=== PATIENT | male | born 1965 | race Caucasian/White ===

== ENCOUNTER → 2016-06-25 | Outpatient (CLI) | payer OTHER, BC ==
[~2016-06-25] MED LIST: MOXI400T2 PO; MULT-506 PO; OXYC1TAB3 PO; PRD10 PO; WARF2TAB PO
== END | disposition home or self-care (01) ==
LOC: C.RDSM 12:09
PROVIDERS: ATTEND Physical Medicine & Rehabilitation Sports Medicine
DX: Z47.1 Aftercare following joint replacement surgery (principal); M17.0 Bilateral primary osteoarthritis of knee; Z96.652 Presence of left artificial knee joint

== ENCOUNTER → 2016-07-06 | Outpatient (CLI) | payer OTHER, BC ==
--- NOTE | 2016-07-06 13:40 | DIAGNOSTIC IMAGING REPORT ---
LUMBAR SPINE 2 OR 3 VIEWS CLINICAL HISTORY: LOWER BACK PAIN pain COMPARISON STUDY: None FINDINGS: Mild scoliosis. Vertebral body stature is unremarkable. Intervertebral discs are well-preserved. Minimal degenerative disc change L5-S1. IMPRESSION: Minimal degenerative disc change L5-S1. Mild scoliosis. Electronically signed by: Dominic Neal M.D. 07/06/2016 1:39 PM Dictated Date/Time: 07/06/2016 1:38 PM
== END | disposition home or self-care (01) ==
LOC: C.RDSM 15:43
PROVIDERS: ATTEND Orthopaedic Surgery
DX: M51.37 Other intervertebral disc degeneration, lumbosacral region (principal); M41.9 Scoliosis, unspecified

== ENCOUNTER → 2016-12-24 | Outpatient (CLI) | payer OTHER, BC | END | disposition home or self-care (01) | LOC: C.RDSM 07:55 | PROVIDERS: ATTEND Physical Medicine & Rehabilitation Sports Medicine | DX: M25.562 Pain in left knee (principal); Z96.652 Presence of left artificial knee joint ==

== ENCOUNTER 2017-01-09 16:01 | Emergency (ER) | payer OTHER, BC ==
[~2017-01-09] VITALS: Ht 190.5 cm; Wt 120.7 kg
[~2017-01-09 16:01] MED LIST changes: -MOXI400T2 PO; -OXYC1TAB3 PO
[2017-01-09 16:07] VITALS: TEMP 36.7; Ht 190.5 cm; Wt 120.7 kg
[2017-01-09] MEDS ORDERED: KETOROLAC TROMETHAMINE 30 MG/ML VIAL IV STA (16:23)
[2017-01-09] MEDS ORDERED: HYDROmorphone INJ 0.5 MG/0.5 ML SYR IV STA (16:25)
[2017-01-09] MEDS ORDERED: SODIUM CHLORIDE 0.9% 1000ML 1,000 ML IV ONE (16:30)
[2017-01-09] MEDS ORDERED: MOXI400T2 PO (16:50)
[2017-01-09 16:54] VITALS: O2SAT 96
[2017-01-09 17:26] LABS: BASO % 0.1 %; BASO ABS # 0.01 K/uL (0-0.2); COMPLETE YES; HEMATOCRIT 44.4 % (42-52); IG% 0.3 %; LYMPH % 7.4 %; LYMPH ABS # 1.27 K/uL (1.2-3.4); MEAN CELL VOLUME 90.8 fL (80-100); MEAN CORPUSCULAR HEMOGLOBIN 32.3 pg (25-34); MEAN CORPUSCULAR HGB CONC 35.6 g/dl (32-36); MEAN PLATELET VOLUME 10.1 fL (7.4-10.4); MONO % 7.2 %; PLATELET COUNT 258 K/uL (130-400); RED BLOOD COUNT 4.89 M/uL (4.7-6.1); WHITE BLOOD COUNT 17.16 K/uL (4.8-10.8)
[2017-01-09 18:00] LABS: ALT/SGPT 37 U/L (12-78); BLOOD UREA NITROGEN 19 mg/dl (7-18); CALCIUM 9.2 mg/dl (8.5-10.1); CARBON DIOXIDE 25 mmol/L (21-32); CHLORIDE 105 mmol/L (98-107); CREATININE 0.99 mg/dl (0.60-1.40); GLUCOSE 102 mg/dl (70-99); SODIUM 138 mmol/L (136-145)
[2017-01-09 18:03] LABS: ALB/GLOB RATIO 1.2 (0.9-2); ALKALINE PHOSPHATASE 74 U/L (45-117); THYROID STIMULATING HORMONE 0.566 uIu/ml (0.300-4.500)
[2017-01-09 18:54] LABS: PARTIAL THROMBOPLASTIN RATIO 1.2
[2017-01-09 19:11] LABS: POTASSIUM 3.7 mmol/L (3.5-5.1)
[2017-01-09 19:16] LABS: MAGNESIUM 2.1 mg/dl (1.8-2.4)
[2017-01-09 19:48] LABS: LYME DISEASE AB IGG NEG (NEG); LYME DISEASE AB IGM NEG (NEG)
[2017-01-09] MEDS ORDERED: OXYCODONE IR HOME PACK PO ONE (20:15)
[2017-01-09] MEDS ORDERED: OXYC1TAB3 PO (20:22)
[2017-01-09 20:30] VITALS: BP 135/91; PULSE 76; O2SAT 95
--- NOTE | 2017-01-10 15:22 | EMERGENCY ROOM VISIT NOTE ---
History First contact with patient: 16:14 Chief Complaint: CHEST PAIN Stated Complaint: CHEST PAINS, DOWN LEFT ARM History of Present Illness The patient is a 51 year old male who presents to the Emergency Room with complaints of left-sided chest pain that began earlier today. 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 While using this he began to develop left-sided chest pain. He states that he switched later hammer. He was doing, however his pain persisted. He was working in the [place] area, and was seen at that facility earlier today, roughly 5 hours ago. Evidently he had blood work, chest x-ray, EKG, and CT scan of his chest at that time. Those findings were evidently normal, but the patient was somewhat dissatisfied with his treatment at that facility. He essentially presents here for another opinion. He rates his current discomfort a 5/10. It comes in waves that he rates a 10/10. His discomfort does not appear to worsen with activity. He does have some discomfort with range of motion. Review of Systems More than 10 systems were reviewed and otherwise negative with the exception of history of present illness. Past Medical/Surgical History History of multiple knee surgeries Family History No pertinent family history Social History Smoking Status: Unknown if Ever Smoked Housing Status: lives with family Current/Historical Medications Scheduled Moxifloxacin Hcl (Avelox), 400 MG PO DAILY Oxycodone Immediate Rel Tab (Roxicodone Ir), 1-2 TAB PO Q6 Prednisone (Prednisone), 10 MG PO UD Physical Exam Vital Signs Date Time Temp Pulse Resp B/P (MAP) Pulse Ox O2 Delivery O2 Flow Rate FiO2 01/09/17 20:30 76 18 135/91 95 Room Air 01/09/17 19:43 72 16 140/84 94 Room Air 01/09/17 18:55 73 16 126/85 96 01/09/17 16:54 96 Room Air 01/09/17 16:54 96 Room Air 01/09/17 16:07 36.7 93 18 144/93 94 Room Air Physical Exam VITALS: Vitals are noted on the nurse's note and reviewed by myself. Vital signs stable. GENERAL: Well-developed, well-nourished, white male, who is in no acute distress and resting comfortably. Patient is cooperative with the examination. NECK: Supple without nuchal rigidity. No lymphadenopathy. No thyromegaly. Cervical spine is nontender. HEART: Regular rate and rhythm without murmurs gallops or rubs. LUNGS: Clear to auscultation bilaterally without wheezes, rales or rhonchi. No retractions or accessory muscle use. CHEST WALL: Left side chest wall is nontender on palpation. No distinct sternal tenderness, clavicular tenderness, or left shoulder tenderness. Range of motion intact and full. ABDOMEN: Positive normal bowel sounds x 4. Soft, nontender, without masses or organomegaly. No guarding or rebound tenderness. MUSCULOSKELETAL: No muscle atrophy, erythema, or edema noted. No calf tenderness. NEURO: Patient was alert and oriented to person place and time. CN II through XII grossly intact Medical Decision & Procedures Laboratory Results 01/09/17 17:00 Red Blood Count 4.89, Mean Corpuscular Volume 90.8, Mean Corpuscular Hemoglobin 32.3, Mean Corpuscular Hemoglobin Concent 35.6, Mean Platelet Volume 10.1, Neutrophils (%) (Auto) 85.0, Lymphocytes (%) (Auto) 7.4, Monocytes (%) (Auto) 7.2, Eosinophils (%) (Auto) 0.0, Basophils (%) (Auto) 0.1, Neutrophils # (Auto) 14.60, Lymphocytes # (Auto) 1.27, Monocytes # (Auto) 1.23, Eosinophils # (Auto) 0.00, Basophils # (Auto) 0.01 01/09/17 17:00 01/09/17 18:23 Test 01/09/17 17:00 01/09/17 18:23 White Blood Count 17.16 K/uL (4.8-10.8) Red Blood Count 4.89 M/uL (4.7-6.1) Hemoglobin 15.8 g/dL (14.0-18.0) Hematocrit 44.4 % (42-52) Mean Corpuscular Volume 90.8 fL (80-100) Mean Corpuscular Hemoglobin 32.3 pg (25-34) Mean Corpuscular Hemoglobin Concent 35.6 g/dl (32-36) Platelet Count 258 K/uL (130-400) Mean Platelet Volume 10.1 fL (7.4-10.4) Neutrophils (%) (Auto) 85.0 % Lymphocytes (%) (Auto) 7.4 % Monocytes (%) (Auto) 7.2 % Eosinophils (%) (Auto) 0.0 % Basophils (%) (Auto) 0.1 % Neutrophils # (Auto) 14.60 K/uL (1.4-6.5) Lymphocytes # (Auto) 1.27 K/uL (1.2-3.4) Monocytes # (Auto) 1.23 K/uL (0.11-0.59) Eosinophils # (Auto) 0.00 K/uL (0-0.5) Basophils # (Auto) 0.01 K/uL (0-0.2) RDW Standard Deviation 39.2 fL (36.4-46.3) RDW Coefficient of Variation 11.9 % (11.5-14.5) Immature Granulocyte % (Auto) 0.3 % Immature Granulocyte # (Auto) 0.05 K/uL (0.00-0.02) Anion Gap 9.0 mmol/L (3-11) Est Creatinine Clear Calc Drug Dose 126.4 ml/min Estimated GFR () 103.2 Estimated GFR (Non- 89.1 BUN/Creatinine Ratio 19.0 (10-20) Calcium Level 9.2 mg/dl (8.5-10.1) Total Bilirubin 0.6 mg/dl (0.2-1) Alanine Aminotransferase (ALT/SGPT) 37 U/L (12-78) Alkaline Phosphatase 74 U/L (45-117) Troponin I < 0.015 ng/ml (0-0.045) Total Protein 7.6 gm/dl (6.4-8.2) Albumin 4.1 gm/dl (3.4-5.0) Globulin 3.5 gm/dl (2.5-4.0) Albumin/Globulin Ratio 1.2 (0.9-2) Lipase 83 U/L (73-393) Thyroid Stimulating Hormone (TSH) 0.566 uIu/ml (0.300-4.500) Activated Partial Thromboplast Time 30.8 SECONDS (21.0-31.0) Partial Thromboplastin Ratio 1.2 Magnesium Level 2.1 mg/dl (1.8-2.4) Aspartate Amino Transf (AST/SGOT) 14 U/L (15-37) Lyme Disease IgG Antibody NEG (NEG) Lyme Disease IgM Antibody NEG (NEG) Medications Administered Medications (Trade) Dose Ordered Sig/Anthony Route Start Time Stop Time Status Last Admin Dose Admin Sodium Chloride 1,000 ml @ 999 mls/hr Q1H1M ONCE IV 01/09/17 16:30 01/09/17 17:30 DC 01/09/17 17:08 999 MLS/HR Ketorolac Tromethamine (Toradol Inj) 30 mg NOW STAT IV 01/09/17 16:23 01/09/17 16:26 DC 01/09/17 17:08 30 MG Hydromorphone HCl (Dilaudid Inj) 0.5 mg NOW STAT IV 01/09/17 16:25 01/09/17 16:27 DC 01/09/17 17:09 0.5 MG Oxycodone HCl (Roxicodone Immediate Rel 5MG Home Pack) 1 homepack UD ONCE PO 01/09/17 20:15 01/09/17 20:16 DC 01/09/17 20:15 1 HOMEPACK ECG Change: Normal sinus rhythm @97 bpm Normal ECG When compared with ECG of 21-OCT-2014 11:56, Vent. rate has increased BY 40 BPM Questionable change in QRS axis Confirmed by TOMMY VARGAS ([id number]) on 01/10/2017 9:20:18 AM ED Course Physical exam and history were performed. Nursing notes, EMR, and Medication List were personally reviewed. 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 He was evaluated roughly 6 hours ago at [facility] in the emergency department. These records were available for my review, and the patient did have a normal x-ray, normal CT angiogram, and negative troponin. He did have a slightly elevated white blood cell count at that visit, and is evidently taking Avelox and prednisone for a sinus infection. EKG was performed here and is as above without distinct ST elevation or ischemia. IV access was established and labs were obtained. The patient's blood work returned as above and was reviewed. He continues to have an elevated white blood cell count, however I do suspect this is from his steroid use. He is not anemic or with significant electrolyte imbalance. Troponin is negative. His remaining labs are fairly nondiagnostic. The patient was given IV fluids, IV Toradol, and IV Dilaudid here in the department , which essentially completely resolved his symptoms. I did discuss the case with my attending physician, Dr. Shah, and overall we do feel the patient is stable for discharge home. He has essentially had a 6 hour troponin here in the department that was negative. His EKG continues without distinct signs of ischemia. He had a CT scan with contrast a few hours ago, and I do not feel that repeating the scan is appropriate at this time. I do have concern that the patient's discomfort may be musculoskeletal in nature. He is on a quinolone and prednisone, which may be saturating to his symptoms. The patient will need to follow with his primary care physician in the next few days for repeat evaluation. I did have a length discussion with him and his about returning to the ER with any new, worsening, or concerning symptoms. I did answer all their questions, and they were pleased with care today. I will give him a short course of oxycodone and an arm sling as I believe the stools will help with his discomfort. The patient's discomfort was rated a 0/10 at the time of departure. The chart was completed utilizing [employer] Speech Voice Recognition Software. Grammatical errors, random word insertions, pronoun errors, and incomplete sentences are an occasional consequence of this system due to software limitations, ambient noise, and hardware issues. Any formal questions or concerns about the content, text, or information contained within the body of this dictation should be directly addressed to the provider for clarification. . Medical Decision Differential diagnosis includes, but is not limited to: Myocardial infarction, dysrhythmia, pericarditis, pneumothorax, aortic aneurysm/dissection, DVT/PE, anxiety, GERD, PUD, electrolyte imbalance, thyroid disorder, pneumonia, bronchitis, pancreatitis, and others Blood Pressure Screening Patient's blood pressure: Elevated blood pressure Blood pressure disposition: Did not require urgent referral Impression Primary Impression: Left-sided chest wall pain Departure Information Dispostion Home / Self-Care Condition GOOD Prescriptions Oxycodone Immediate Rel Tab (ROXICODONE IR) 5 Mg Tab 1-2 TAB PO Q6, #15 TAB Prov: Marcus Lindsey PA-C 01/09/17 Forms Call Back Authorization, HOME CARE DOCUMENTATION FORM, IMPORTANT VISIT INFORMATION Patient Instructions My [facility] Additional Instructions You were seen and evaluated today on an emergency basis only. This is not a substitute for, or an effort to provide, complete comprehensive medical care. It is not possible to recognize and treat all injuries or illnesses in a single emergency department visit. For this reason it is recommended that you followup with your primary care physician on Saturday for recheck of your condition. Oxycodone (OxyIR) 5mg: Take ONE or TWO pills every SIX hours for breakthrough pain. Avoid alcohol, operating machinery or dangerous equipment, working on ladders or roofs, DRIVING, or situations where being under the influence may be dangerous. It is recommended to use an [id number] stool softener such as Colace, 100mg twice daily while taking this medication to avoid constipation. Wear your sling for comfort. You are welcome to return to the emergency department anytime with new, worsening, or concerning symptoms.
== END 2017-01-09 20:38 | disposition home or self-care (01) ==
LOC: C.EDB 16:02 → C.EDA 20:38
DX: R07.89 Other chest pain (principal)

== ENCOUNTER 2017-03-30 19:47 | Emergency (ER) | payer OTHER ==
[~2017-03-30] VITALS: Ht 193 cm; Wt 122.7 kg
[~2017-03-30 19:47] MED LIST changes: +MOXI400T2 PO; -MULT-506 PO; +OXYC1TAB3 PO; -WARF2TAB PO
[2017-03-30 19:51] VITALS: Ht 193 cm; Wt 122.7 kg
[2017-03-30] MEDS ORDERED: ACETAMINOPHEN 325 MG TAB PO STA (20:06)
[2017-03-30] MEDS ORDERED: KETOROLAC TROMETHAMINE 30 MG/ML VIAL IV STA (20:06)
--- NOTE | 2017-03-30 20:13 | EMERGENCY ROOM VISIT NOTE ---
History First contact with patient: 19:57 Chief Complaint: FLU LIKE SX Stated Complaint: FEVER,COUGH,FLU History of Present Illness The patient is a 51 year old male who presents to the Emergency Room with complaints of flulike symptoms that started yesterday. The patient has had a productive cough with green sputum and a fever as high as 102F. He has been taking acetaminophen with minimal relief. He denies any nausea or vomiting. He does have some sinus pressure and ear pain. He also complains of a scratchy throat. He did not get his flu shot this year. He denies any known sick contacts. Review of Systems 10 system review performed and negative unless noted in HPI or below Past Medical/Surgical History Otherwise healthy Social History Smoking Status: Never Smoker Housing Status: lives with family Occupation Status: employed Current/Historical Medications Scheduled Amoxicillin & Pot Clavulanate (Augmentin 875-125 mg), 1 TAB PO BID Meloxicam (Mobic), 7.5 MG PO NEEDED Physical Exam Vital Signs Date Time Temp Pulse Resp B/P (MAP) Pulse Ox O2 Delivery O2 Flow Rate FiO2 03/30/17 21:41 37.2 98 18 134/85 95 Room Air 03/30/17 20:52 104 03/30/17 19:51 39.0 120 18 125/83 93 Room Air Physical Exam GENERAL: 51-year-old male, mildly acutely ill in appearance,, SKIN: The skin was without rashes, erythema, edema, or bruising. HEAD: Normocephalic atraumatic. EARS: External auditory canals clear, right tympanic membrane is pearly sauceda without effusion. Left tympanic membrane is moderately erythematous without effusion. EYES: Conjunctivae without injection, sclerae without icterus. Extraocular movements intact. NOSE: Patent, turbinates without inflammation or discharge. No sinus tenderness. MOUTH: Mucous membranes moist. Tonsils are not enlarged. Pharynx without erythema or exudate. Uvula midline. Airway patent. Tongue does not deviate. NECK: Supple without nuchal rigidity. No lymphadenopathy. Cervical spine is nontender. No JVD. HEART: Tachycardic, regular rhythm without murmurs gallops or rubs. LUNGS: Clear to auscultation bilaterally without wheezes, rales or rhonchi. No accessory muscle use. ABDOMEN: Positive bowel sounds x 4.Soft, nontender, without organomegaly. MUSCULOSKELETAL: No muscle atrophy, erythema, or edema noted. Strength 5/5 throughout. NEURO: Patient was alert and oriented to person place and time. Normal sensation to touch. No focal neurological deficits. Medical Decision & Procedures ER Provider Diagnostic Interpretation: CXR IMPRESSION: 1. Mildly low lung volumes with hypoventilatory changes. No focal infiltrate to suggest pneumonia. Electronically signed by: Ivan Guerrero M.D. 03/30/2017 9:27 PM Dictated Date/Time: 03/30/2017 9:26 PM The status of this report is Signed. Draft = Not yet reviewed or approved by Radiologist. Laboratory Results 03/30/17 20:30 Red Blood Count 4.73, Mean Corpuscular Volume 91.5, Mean Corpuscular Hemoglobin 32.3, Mean Corpuscular Hemoglobin Concent 35.3, Mean Platelet Volume 10.0, Neutrophils (%) (Auto) 76.8, Lymphocytes (%) (Auto) 9.6, Monocytes (%) (Auto) 12.6, Eosinophils (%) (Auto) 0.5, Basophils (%) (Auto) 0.4, Neutrophils # (Auto ) 5.65, Lymphocytes # (Auto) 0.71, Monocytes # (Auto) 0.93, Eosinophils # (Auto ) 0.04, Basophils # (Auto) 0.03 03/30/17 20:30 Test 03/30/17 20:30 03/30/17 20:31 White Blood Count 7.37 K/uL (4.8-10.8) Red Blood Count 4.73 M/uL (4.7-6.1) Hemoglobin 15.3 g/dL (14.0-18.0) Hematocrit 43.3 % (42-52) Mean Corpuscular Volume 91.5 fL (80-100) Mean Corpuscular Hemoglobin 32.3 pg (25-34) Mean Corpuscular Hemoglobin Concent 35.3 g/dl (32-36) Platelet Count 167 K/uL (130-400) Mean Platelet Volume 10.0 fL (7.4-10.4) Neutrophils (%) (Auto) 76.8 % Lymphocytes (%) (Auto) 9.6 % Monocytes (%) (Auto) 12.6 % Eosinophils (%) (Auto) 0.5 % Basophils (%) (Auto) 0.4 % Neutrophils # (Auto) 5.65 K/uL (1.4-6.5) Lymphocytes # (Auto) 0.71 K/uL (1.2-3.4) Monocytes # (Auto) 0.93 K/uL (0.11-0.59) Eosinophils # (Auto) 0.04 K/uL (0-0.5) Basophils # (Auto) 0.03 K/uL (0-0.2) RDW Standard Deviation 40.5 fL (36.4-46.3) RDW Coefficient of Variation 12.0 % (11.5-14.5) Immature Granulocyte % (Auto) 0.1 % Immature Granulocyte # (Auto) 0.01 K/uL (0.00-0.02) Anion Gap 7.0 mmol/L (3-11) Est Creatinine Clear Calc Drug Dose 122.9 ml/min Estimated GFR () 97.3 Estimated GFR (Non- 83.9 BUN/Creatinine Ratio 11.1 (10-20) Calcium Level 8.6 mg/dl (8.5-10.1) Total Bilirubin 0.4 mg/dl (0.2-1) Aspartate Amino Transf (AST/SGOT) 25 U/L (15-37) Alanine Aminotransferase (ALT/SGPT) 43 U/L (12-78) Alkaline Phosphatase 59 U/L (45-117) Total Protein 7.0 gm/dl (6.4-8.2) Albumin 3.9 gm/dl (3.4-5.0) Globulin 3.1 gm/dl (2.5-4.0) Albumin/Globulin Ratio 1.3 (0.9-2) Influenza Type A Antigen Neg for Influ A (NEG) Influenza Type B Antigen Neg for Influ B (NEG) Medications Administered Medications (Trade) Dose Ordered Sig/Anthony Route Start Time Stop Time Status Last Admin Dose Admin Ketorolac Tromethamine (Toradol Inj) 30 mg NOW STAT IV 03/30/17 20:06 03/30/17 20:09 DC 03/30/17 20:33 30 MG Acetaminophen (Tylenol Tab) 650 mg NOW STAT PO 03/30/17 20:06 03/30/17 20:09 DC 03/30/17 20:34 650 MG Sodium Chloride 1,000 ml @ 999 mls/hr Q1H1M ONCE IV 03/30/17 20:15 03/30/17 21:15 DC 03/30/17 20:32 999 MLS/HR ED Course Patient was seen and examined Vital signs including blood pressure were reviewed medications list was verified with patient Labs were obtained, and a saline lock was established The patient was medicated with Toradol and Tylenol. He was hydrated with 1 L of normal saline. Imaging was performed and reviewed Upon reassessment, the patient was slightly more comfortable. We discussed his workup at length. He voiced understanding. The patient's vital signs were reassessed. I reviewed discharge instructions the patient. They voiced understanding and had no further questions. Medical Decision Differential diagnosis: Influenza, pneumonia, otitis media, strep pharyngitis, viral pharyngitis, other viral syndrome This patient is a 51-year-old male presents to the emergency department with flulike symptoms. On exam, he was mildly acutely ill and febrile. His left TM was moderately erythematous. He did not have any signs of nuchal rigidity to suggest meningitis. His workup reveals no leukocytosis. Chest x-ray is negative for pneumonia. Influenza swabs were also negative. This is likely a viral illness. I offered the patient a CT scan to assess him for sinusitis, which he declined. He was comfortable being discharged home. The patient was provided a prescription for Augmentin, which should be adequate coverage for an otitis media or sinusitis. If he is still spiking fevers tomorrow, has increased ear pressure or sinus pressure, he will start and finish the entire course. I advised him to have very close follow-up with his primary care physician. He agrees to return to the emergency department with any worsening symptoms; especially, uncontrolled fever, headache or neck pain This chart was completed in part utilizing [employer] Voice Recognition software. Attempts were made to minimize the grammatical errors, random word insertions, pronoun errors and incomplete sentences. Any formal questions or concerns about the content, text or information contained within the body of this dictation should be directly addressed to the provider for clarification. Blood Pressure Screening Patient's blood pressure: Normal blood pressure Blood pressure disposition: Did not require urgent referral Impression Primary Impression: Influenza-like symptoms Departure Information Dispostion Home / Self-Care Condition GOOD Prescriptions Amoxicillin & Pot Clavulanate (Augmentin 875-125 mg) 1 Tab Tab 1 TAB PO BID for 10 Days, #20 TAB Prov: Elizabeth Anne PA-C 03/30/17 Referrals Cherise Vasques (PCP) Patient Instructions My [facility] Additional Instructions You have been evaluated in the emergency department for flulike symptoms. An influenza swab was performed and negative. A chest x-ray did not show any signs of pneumonia. This is likely a viral illness. You have been given a perception for Augmentin. If you are still spiking fevers and having significant ear pain or sinus pressure, please start and finish the entire course. Please take a probiotic or eat yogurt daily with this antibiotic. This can cause loose stools. Please stay well hydrated. I would recommend water and sports drinks. Ibuprofen 800 mg and/or Tylenol 1000 mg every 8 hours for fever and pain. You may also alternate these medications for more effective pain relief: Ibuprofen --4 HRS--> Tylenol --4 HRS--> ibuprofen --4 HRS--> Tylenol .... Please follow-up with your primary care physician as soon as possible for a recheck. Please do not hesitate to return to the emergency department with any new, worsening or concerning symptoms; especially, uncontrolled fever, headache, neck pain or back pain. It was a pleasure participating in your care today Work Instructions Return To Work: 2 days
[2017-03-30] MEDS ORDERED: SODIUM CHLORIDE 0.9% 1000ML 1,000 ML IV ONE (20:15)
[2017-03-30 20:45] LABS: BASO % 0.4 %; BASO ABS # 0.03 K/uL (0-0.2); EOS % 0.5 %; EOS ABS # 0.04 K/uL (0-0.5); HEMATOCRIT 43.3 % (42-52); HEMOGLOBIN 15.3 g/dL (14.0-18.0); IG# 0.01 K/uL (0.00-0.02); LYMPH % 9.6 %; LYMPH ABS # 0.71 K/uL (1.2-3.4); MEAN CELL VOLUME 91.5 fL (80-100); MEAN CORPUSCULAR HEMOGLOBIN 32.3 pg (25-34); MEAN CORPUSCULAR HGB CONC 35.3 g/dl (32-36); MONO % 12.6 %; MONO ABS # 0.93 K/uL (0.11-0.59); NEUT % 76.8 %; NEUT ABS # 5.65 K/uL (1.4-6.5); PLATELET COUNT 167 K/uL (130-400); RED CELL DISTRIBUTION WIDTH SD 40.5 fL (36.4-46.3); WHITE BLOOD COUNT 7.37 K/uL (4.8-10.8)
[2017-03-30 21:12] LABS: ALBUMIN 3.9 gm/dl (3.4-5.0); CALCIUM 8.6 mg/dl (8.5-10.1); CREATININE 1.04 mg/dl (0.60-1.40); POTASSIUM 3.4 mmol/L (3.5-5.1)
[2017-03-30] MEDS ORDERED: MELO7.5T5 PO (21:14)
[2017-03-30 21:21] LABS: INFLUENZA B ANTIGEN Neg for Influ B (NEG)
--- NOTE | 2017-03-30 21:29 | DIAGNOSTIC IMAGING REPORT ---
CHEST 2 VIEWS ROUTINE CLINICAL HISTORY: 51 years-old Male presenting with cough, fever. TECHNIQUE: PA and lateral views of the chest were obtained. COMPARISON: 10/21/2014. FINDINGS: Cardiac silhouette top normal in size. Mildly low lung volumes with hypoventilatory changes. Lungs and pleural spaces clear. Osseous structures normal. Cholecystectomy clips noted. IMPRESSION: 1. Mildly low lung volumes with hypoventilatory changes. No focal infiltrate to suggest pneumonia. Electronically signed by: Ivan Guerrero M.D. 03/30/2017 9:27 PM Dictated Date/Time: 03/30/2017 9:26 PM
[2017-03-30 21:41] VITALS: BP 134/85; PULSE 98; TEMP 37.2; O2SAT 95
[2017-03-30] MEDS ORDERED: AMOX875T PO (22:02)
== END 2017-03-30 22:08 | disposition home or self-care (01) ==
LOC: C.EDB 19:49
DX: R50.9 Fever, unspecified (principal); R05 Cough

== ENCOUNTER → 2017-06-25 | Outpatient (CLI) | payer OTHER ==
[~2017-06-25] MED LIST changes: +MELO7.5T5 PO; -MOXI400T2 PO; -OXYC1TAB3 PO; -PRD10 PO
== END | disposition home or self-care (01) ==
LOC: C.RDSM 14:15
PROVIDERS: ATTEND Physical Medicine & Rehabilitation Sports Medicine
DX: M17.0 Bilateral primary osteoarthritis of knee (principal); Z96.652 Presence of left artificial knee joint

== ENCOUNTER 2021-03-21 11:48 | Inpatient (IN) ==
[2021-03-21] MEDS ORDERED: ACETAMINOPHEN 80 MG CHEWABLE TAB PO STA (12:14)
[2021-03-21] MEDS ORDERED: SODIUM CHLORIDE 0.9% 1000ML 500 ML IV ONE (12:14)
[2021-03-21] MEDS ORDERED: methylPREDNISolone 125 MG/2 ML VIAL IV STA (12:15)
--- NOTE | 2021-03-21 12:20 | Emergency Department Note ---
Impression & Plan Acute respiratory failure with hypoxia, Post covid-19 condition, unspecified, Acute hypokalemia, Acute hyponatremia ED Provider Note NAME: Enoc WOODS AGE: 55 SEX: M : 1965 ARRIVES VIA: Walk-In INFORMANT: Patient ED PROVIDER(S): Jack Harry DO CHIEF COMPLAINT: shortness of breath HPI: 55-year-old male who presents ER for shortness of breath. He tested positive for Covid 3 weeks ago. He was seen and evaluated by his PCP over the weekend and referred in for possible TN and was discharged following complete work-up. He admits to cough and congestion and he passed out today with coughing. He denies any recorded fevers. No belly pain, nausea, vomiting, or diarrhea. No dysuria, urgency, or frequency. No other exacerbating or remitting factors. Shortness of breath is worse with any movement. He does not wear oxygen. ROS: See above HPI for pertinent positives & negatives. A total of 10 systems reviewed and were otherwise negative. PAST MEDICAL HISTORY:See Below PAST SURGICAL HISTORY:See Below FAMILY HISTORY:See Below SOCIAL HISTORY:See Below HOME MEDICATIONS:See Below ALLERGIES:See Below VITALS:See Below PHYSICAL EXAMINATION: GENERAL: Sitting up in bed, alert, ill-appearing with a persistent cough, on nasal cannula EYE EXAM: normal conjunctiva. PERRL and EOM's grossly intact. OROPHARYNX: no exudate, no erythema, lips, buccal mucosa, and tongue normal and mucous membranes are moist NECK: supple, no nuchal rigidity, no adenopathy, non-tender LUNGS: Clear to auscultation. Normal chest wall mechanics HEART: no murmurs, S1 normal and S2 normal ABDOMEN: abdomen soft, non-tender, normo-active bowel sounds, no masses, no rebound or guarding. UPPER EXTREMITIES: upper extremities are grossly normal. LOWER EXTREMITIES: No pitting edema. Calves are equal bilateral NEURO EXAM: Normal sensorium, cranial nerves II-XII grossly intact, normal speech, no gross weakness of arms, no gross weakness of legs. MEDICAL DECISION MAKING: Patient is a 55-year-old male who presents the ER hypoxic at 86% on room air. IV was established blood work was obtained. He was slightly tachycardic. He was borderline febrile at 37.9.He was placed on 2 L nasal cannula.IV was established blood work was obtained. Labs show no significant leukocytosis or anemia. D-dimer was elevated at 540. BMP with mild hyponatremia and hypokalemia. Mild transaminitis with an ALT of 118. T bili was not elevated. Troponin was negative. Lipase was clean. Covid was negative. CT angio of the chest shows no PEs but bilateral infiltrates. Is Covid is negative and is about 3 weeks removed. He was given a dose of antibiotics prophylactically due to the multifocal infiltrates although I favor this likely resolving Covid pneumonia causing hypoxia. Will defer to the hospitalist for further treatment. He was updated bedside. Resting comfortably on nasal cannula. Triage Nursing notes reviewed. Limited review of prior medical records performed Vital Signs: reviewed and remarkable for hypertensive, tachycardic and febrile and hypoxic Differential diagnosis: Differential diagnoses includes but is not limited to pneumonia, bronchitis, COPD/Asthma exacerbation, pneumothorax, pulmonary embolism, congestive heart failure, acute coronary syndrome ER treatment provided: See below Diagnostics interpreted by me: ECG: Sinus tachycardia rate of 119 Left axis No PVCs QTC 450 Cardiac Monitoring: An order was placed for continuous cardiac monitoring. The monitor shows a rate of 110 with sinus rhythm. Laboratory studies: As stated above and show below. Imaging studies: CT angios the chest shows no PEs bilateral infiltrates Consultation(s): Discussed with Dr. Gutierrez for further evaluation Procedures: none Critical Care: I have personally spent 31 minutes of critical care time in the direct management of this patient. This includes bedside care, interpretation of diagnostic studies, and testing, discussion with consultants, patient, and family members, and other required patient management activities. This 31 minutes is in excess of all separately billable procedures. Past Med/Surg History Medical History Osteoarthritis Surgical History H/O knee surgery R/L X 15 TOTAL SURGERIES H/O shoulder surgery LEFT History of cholecystectomy History of colonoscopy History of revision of total replacement of left knee joint History of total knee replacement R/L S/P epidural steroid injection Family History Other No family history of adverse response to anesthesia Social History Smoking Status: Never smoker Second Hand Exposure: No; Hx Alcohol Use: Yes Alcohol type: hard liquor Hx Substance Use: No Preferred Language: Azerbaijani Communication Ability: Effective Residential Care Officer Required: No Beliefs That Will Affect Care: None Current Living Situation: Spouse and Family Feels Safe at Home: Yes Assistive Devices: None Allergies Allergies Allergy/AdvReac Type Severity Reaction Status Date / Time shellfish derived Allergy Severe THROAT Verified 03/21/21 14:48 SWELLING,RASH NAUSEA AND VOMITING milk Allergy Intermediate Gastrointestinal Verified 03/21/21 14:48 Upset iodine Allergy Mild TOPICAL-JOCELYN Verified 03/21/21 14:48 H Home Meds Home Medications Medication Instructions Recorded Confirmed acetaminophen 500 mg tablet 1,000 mg PO Q6H PRN 04/15/18 03/21/21 (Tylenol Extra Strength) ibuprofen 200 mg tablet (Advil) 400 - 600 mg PO Q6H PRN 01/13/19 03/21/21 zinc 50 mg tablet 50 mg PO DAILY 06/30/19 03/21/21 amoxicillin 500 mg capsule 0 mg PO DIRECTED PRN 03/21/21 03/21/21 Previous Rx's Medication Instructions Recorded albuterol sulfate 90 mcg/actuation 2 inh INHALATION Q4H PRN #8.5 g 03/18/21 aerosol inhaler (Proventil HFA) azithromycin 250 mg tablet See Rx Instructions .ROUTE 03/18/21 (Zithromax Z-Mando) .COMPLEX #6 tab prednisone 20 mg tablet 20 mg PO BID 5 Days #10 tab 03/18/21 Results & Data (ED) Vital Signs Vital Signs - 24 hr 03/21/21 11:52 03/21/21 12:02 03/21/21 12:05 Temperature 37.9 C H Temperature Source Temporal Artery Scan Pulse Rate 136 H Pulse Rate [Finger] 115 H Pulse Rhythm Pulse Rhythm [Finger] Regular Pulse Strength [Finger] Normal Respiratory Rate 24 18 Respiratory Effort / Characteristics Non-Labored Non-Labored Respiratory Depth Normal Normal Normal Respiratory Pattern Regular Regular Blood Pressure 110/78 Blood Pressure [Right Arm] 141/87 H Blood Pressure Mean 88 Blood Pressure Mean [Right Arm] 105 Blood Pressure Position Sitting Blood Pressure Position [Right Arm] Sitting Pulse Oximetry 88 L 94 Oxygen Delivery Method Room Air Nasal Cannula Nasal Cannula Oxygen Flow Rate 2 2 Sepsis Recent Fever Within 48 Hours Yes Sepsis New/Unexplained Change in Mental Status No Sepsis Action Taken by Nursing Physician Notified 03/21/21 12:18 03/21/21 13:56 03/21/21 14:35 Temperature 37.9 C H Temperature Source Oral Pulse Rate 113 H Pulse Rate [Finger] 101 H Pulse Rhythm Regular Pulse Rhythm [Finger] Regular Pulse Strength [Finger] Normal Respiratory Rate 20 20 Respiratory Effort / Characteristics Non-Labored Respiratory Depth Normal Respiratory Pattern Blood Pressure Blood Pressure [Right Arm] 112/72 Blood Pressure Mean Blood Pressure Mean [Right Arm] 85 Blood Pressure Position Blood Pressure Position [Right Arm] Sitting Pulse Oximetry 94 94 Oxygen Delivery Method Nasal Cannula Nasal Cannula Oxygen Flow Rate 2 2 Sepsis Recent Fever Within 48 Hours Sepsis New/Unexplained Change in Mental Status Sepsis Action Taken by Nursing Laboratory Data Result diagrams: 03/21/21 12:15 03/21/21 12:15 Lab Results 03/21/21 03/21/21 03/21/21 Range/Units 12:15 12:15 12:15 WBC 10.09 (4.8-10.8) K/uL RBC 4.87 (4.7-6.1) M/uL Hgb 15.4 (14.0-18.0) g/dL Hct 45.7 (42-52) % MCV 93.8 (80-100) fL MCH 31.6 (25-34) pg MCHC 33.7 (32-36) g/dL RDW Std Deviation 40.1 (36.4-46.3) fL RDW Coeff of Jose Manuel 11.8 (11.5-14.5) % Plt Count 307 (130-400) K/uL MPV 9.7 (7.4-10.4) fL Immature Gran % (Auto) 0.2 % Neut % (Auto) 83.6 % Lymph % (Auto) 7.5 % Bertie % (Auto) 8.6 % Eos % (Auto) 0.0 % Baso % (Auto) 0.1 % Neut # (Auto) 8.43 H (1.4-6.5) K/uL Lymph # (Auto) 0.76 L (1.2-3.4) K/uL Bertie # (Auto) 0.87 H (0.11-0.59) K/uL Eos # (Auto) 0.00 (0-0.5) K/uL Baso # (Auto) 0.01 (0-0.2) K/uL Immature Gran # (Auto) 0.02 (0.00-0.02) K/uL D-Dimer 540 H* (0-500) ug/L FEU Sodium 134 L (136-145) mmol/L Potassium 3.2 L (3.5-5.1) mmol/L Chloride 100 (98-107) mmol/L Carbon Dioxide 25 (21-32) mmol/L Anion Gap 9 (3-11) BUN 15 (6-23) mg/dl Creatinine 0.89 (0.6-1.4) mg/dl Est Cr Clr Drug Dosing 131.0 ml/min Est GFR ( Amer) 113.1 ml/min Est GFR (Non-Af Amer) 97.6 ml/min BUN/Creatinine Ratio 16.9 (10-20) Glucose 114 H (70-99(Fasting)) mg/dl Calcium 8.7 (8.5-10.1) mg/dl Total Bilirubin 0.6 (0.2-1.0) mg/dl AST 40 H (13-39) U/L ALT 118 H (7-52) U/L Alkaline Phosphatase 56 (34-104) U/L Troponin I < 0.03 (0-0.04) ng/ml Total Protein 6.8 (6.0-8.3) gm/dl Albumin 4.0 (3.4-5.0) gm/dl Globulin 2.8 (2.5-4.0) gm/dl Albumin/Globulin Ratio 1.4 (0.9-2) Lipase 40 (11-82) U/L SARS-CoV-2, RNA, NAAT (NEGATIVE) 03/21/21 Range/Units 12:15 WBC (4.8-10.8) K/uL RBC (4.7-6.1) M/uL Hgb (14.0-18.0) g/dL Hct (42-52) % MCV (80-100) fL MCH (25-34) pg MCHC (32-36) g/dL RDW Std Deviation (36.4-46.3) fL RDW Coeff of Jose Manuel (11.5-14.5) % Plt Count (130-400) K/uL MPV (7.4-10.4) fL Immature Gran % (Auto) % Neut % (Auto) % Lymph % (Auto) % Bertie % (Auto) % Eos % (Auto) % Baso % (Auto) % Neut # (Auto) (1.4-6.5) K/uL Lymph # (Auto) (1.2-3.4) K/uL Bertie # (Auto) (0.11-0.59) K/uL Eos # (Auto) (0-0.5) K/uL Baso # (Auto) (0-0.2) K/uL Immature Gran # (Auto) (0.00-0.02) K/uL D-Dimer (0-500) ug/L FEU Sodium (136-145) mmol/L Potassium (3.5-5.1) mmol/L Chloride (98-107) mmol/L Carbon Dioxide (21-32) mmol/L Anion Gap (3-11) BUN (6-23) mg/dl Creatinine (0.6-1.4) mg/dl Est Cr Clr Drug Dosing ml/min Est GFR ( Amer) ml/min Est GFR (Non-Af Amer) ml/min BUN/Creatinine Ratio (10-20) Glucose (70-99(Fasting)) mg/dl Calcium (8.5-10.1) mg/dl Total Bilirubin (0.2-1.0) mg/dl AST (13-39) U/L ALT (7-52) U/L Alkaline Phosphatase (34-104) U/L Troponin I (0-0.04) ng/ml Total Protein (6.0-8.3) gm/dl Albumin (3.4-5.0) gm/dl Globulin (2.5-4.0) gm/dl Albumin/Globulin Ratio (0.9-2) Lipase (11-82) U/L SARS-CoV-2, RNA, NAAT NEGATIVE (NEGATIVE) Administered Medications Discontinued Medications Acetaminophen (Acetaminophen 80 Mg Chewable Tab) 640 mg PO NOW STA Stop: 03/21/21 12:15 Last Admin: 03/21/21 13:23 Dose: 640 mg Documented by: [id number] Sodium Chloride (Nss 1000ml) 500 mls @ 999 mls/hr IV .Q31M ONE Stop: 03/21/21 12:44 Last Infusion: 03/21/21 13:08 Dose: 999 mls/hr Documented by: [id number] Admin: 03/21/21 12:37 Dose: 999 mls/hr Documented by: [id number] Levofloxacin/Dextrose (Levaquin/D5w) 750 mg in 150 mls @ 100 mls/hr IV NOW STA Stop: 03/21/21 15:35 Last Admin: 03/21/21 14:29 Dose: 100 mls/hr Documented by: [id number] Ioversol (Optiray 320 125ml) 120 ml IV ONCE ONE Stop: 03/21/21 13:46 Last Admin: 03/21/21 13:46 Dose: 120 ml Documented by: [id number] Methylprednisolone (Methylprednisolone 125 Mg/2 Ml Vial) 125 mg IV NOW STA Stop: 03/21/21 12:16 Last Admin: 03/21/21 12:38 Dose: 125 mg Documented by: [id number] Imaging Data Radiologist's Impression: Chest X-Ray 03/21/21 00:00 XR chest 1V portable HISTORY: Cough. Weakness. COMPARISON: Chest 03/18/2021. FINDINGS: There are low lung volumes. No pneumothorax. No pleural effusions. The cardiac silhouette is mildly enlarged. No evidence for pulmonary edema. There are small scattered patchy airspace opacities within the bilateral mid to lower lung zones. This likely represents a viral pneumonia. IMPRESSION: Scattered small peripheral airspace opacities within the mid to lower lung zones. This favors a viral pneumonia. ACT 112: Negative or not required by law. Electronically signed by: Tanner Cevallos M.D. 03/21/2021 2:15 PM Chest CTA 03/21/21 12:53 CT angio chest PE protocol CT DOSE: 865.27 mGy.cm HISTORY: 55 years-old Male with PE. Acute shortness of breath with cough and possible bronchitis TECHNIQUE: Multiple CTA images of the chest were obtained after the intravenous administration of 120 ml Optiray. Coronal and sagittal MIPS were obtained from the axial data set and were submitted for review. All measurements were obtained according to NASCET criteria. A dose lowering technique was utilized adhering to the principles of ALARA. COMPARISON: Chest radiograph of same day FINDINGS: CTA: Mild cardiomegaly. There is no pericardial effusion. Mild coronary artery calcifications. No thoracic aortic aneurysm or dissection. There is patency of the imaged great vessels. The pulmonary arterial tree segmental and subsegmental branches are suboptimally evaluated secondary to respiratory motion artifact and contrast bolus timing. No central pulmonary emboli are identified. CT CHEST: No thyroid nodule. Prominent and minimally enlarged mediastinal and hilar lymph nodes measuring up to 10 mm are favored to be reactive. There is no pneumothorax, pleural effusion or overt pulmonary edema. Patchy multifocal bilateral bibasilar and subpleural predominant groundglass and consolidative opacities. The central airways are patent. Tiny hiatal hernia. Cholecystectomy. Hepatic steatosis. Unremarkable soft tissues. No acute fracture or suspicious bone lesion. Degenerative changes of the shoulders and spine. IMPRESSION: 1. No pulmonary emboli. 2. Multifocal bibasilar and subpleural predominant groundglass and consolidative opacities are suggestive of viral pneumonia. 3. Mild mediastinal and hilar adenopathy is likely reactive. 4. Mild cardiomegaly with mild coronary artery calcifications. 5. Hepatic steatosis. ACT 112: Negative or not required by law. The above report was generated using voice recognition software. It may contain grammatical, syntax or spelling errors. Electronically signed by: Malachi Sibley M.D. 03/21/2021 2:12 PM Discharge Plan Visit Data Chief Complaint: Shortness of Breath/Dyspnea Stated Complaint: SEVERE SOB, SYNCOPE ED Provider: Jack Harry Discharge Problem: Acute respiratory failure with hypoxia, Post covid-19 condition, unspecified, Acute hypokalemia, Acute hyponatremia Forms Stand Alone Forms: [facility] Prescriptions Prescriptions: No Action acetaminophen [Tylenol Extra Strength] 500 mg Tablet 1,000 mg PO Q6H PRN (Reason: Pain) RF: 0 ibuprofen [Advil] 200 mg Tablet 400 - 600 mg PO Q6H PRN (Reason: Pain) RF: 0 zinc 50 mg Tablet 50 mg PO DAILY RF: 0 prednisone 20 mg tablet 20 mg PO BID 5 Days Qty: 10 RF: 0 azithromycin [Zithromax Z-Mando] 250 mg tablet See Rx Instructions .ROUTE .COMPLEX Qty: 6 RF: 0 albuterol sulfate [Proventil HFA] 90 mcg/actuation HFA aerosol inhaler 2 inh inhalation Q4H PRN (Reason: shortness of breath or wheezing) Qty: 8.5 RF: 0 amoxicillin 500 mg Capsule 0 mg PO DIRECTED PRN (Reason: PRIOR TO DENTAL VISITS.) RF: 0 Referrals Referrals: Cherise Vasques CRNP [Primary Care Provider] -
[2021-03-21 12:33] LABS: Basophils # (auto) 0.01 K/uL (0-0.2); Basophils % (auto) 0.1 %; Hematocrit (blood only) 45.7 % (42-52); Hemoglobin 15.4 g/dL (14.0-18.0); Immature Granulocytes # (auto) 0.02 K/uL (0.00-0.02); Immature Granulocytes % (auto) 0.2 %; Lymphocytes # (auto) 0.76 K/uL (1.2-3.4); Lymphocytes % (auto) 7.5 %; Mean Corpuscular Hemoglobin 31.6 pg (25-34); Mean Corpuscular Hgb Conc 33.7 g/dL (32-36); Mean Corpuscular Volume 93.8 fL (80-100); Mean Platelet Volume 9.7 fL (7.4-10.4); Monocytes # (auto) 0.87 K/uL (0.11-0.59); Monocytes % (auto) 8.6 %; Neutrophils # (auto) 8.43 K/uL (1.4-6.5); Neutrophils % (auto) 83.6 %; Platelet Count 307 K/uL (130-400); RDW Coefficient of Variation 11.8 % (11.5-14.5); RDW Standard Deviation 40.1 fL (36.4-46.3); Red Blood Count 4.87 M/uL (4.7-6.1); White Blood Count 10.09 K/uL (4.8-10.8)
[2021-03-21 12:48] LABS: D Dimer 540 ug/L FEU (0-500)
[2021-03-21 12:58] LABS: Troponin I < 0.03 ng/ml (0-0.04)
[2021-03-21 13:03] LABS: Alanine Aminotransferase 118 U/L (7-52); Albumin Globulin Ratio 1.4 (0.9-2); Alkaline Phosphatase 56 U/L (34-104); Anion Gap 9 (3-11); Aspartate Aminotransferase 40 U/L (13-39); BUN Creatinine Ratio 16.9 (10-20); Bilirubin,Total 0.6 mg/dl (0.2-1.0); Blood Urea Nitrogen 15 mg/dl (6-23); Calcium 8.7 mg/dl (8.5-10.1); Carbon Dioxide 25 mmol/L (21-32); Chloride 100 mmol/L (98-107); Est GFR (African American) 113.1 ml/min; Est GFR (Non-African American) 97.6 ml/min; Globulin 2.8 gm/dl (2.5-4.0); Glucose 114 mg/dl (70-99(Fasting)); Lipase 40 U/L (11-82); Potassium 3.2 mmol/L (3.5-5.1); Sodium 134 mmol/L (136-145); Total Protein 6.8 gm/dl (6.0-8.3)
[2021-03-21] MEDS ORDERED: OPTIRAY 320 125ml IV ONE (13:45)
[2021-03-21] MEDS ORDERED: levoFLOXacin/D5W 750 MG/150 ML BAG IV STA (14:06)
--- NOTE | 2021-03-21 14:14 | CT Scan Report ---
CT angio chest PE protocol CT DOSE: 865.27 mGy.cm HISTORY: 55 years-old Male with PE. Acute shortness of breath with cough and possible bronchitis TECHNIQUE: Multiple CTA images of the chest were obtained after the intravenous administration of 120 ml Optiray. Coronal and sagittal MIPS were obtained from the axial data set and were submitted for review. All measurements were obtained according to NASCET criteria. A dose lowering technique was u tilized adhering to the principles of ALARA. COMPARISON: Chest radiograph of same day FINDINGS: CTA: Mild cardiomegaly. There is no pericardial effusion. Mild coronary artery calcifications. No thoracic aortic aneurysm or dissection. There is patency of the imaged great vessels. The pulmonary arterial tree segmental and subsegmental branches are suboptimally evaluated secondary to respiratory motion a rtifact and contrast bolus timing. No central pulmonary emboli are identified. CT CHEST: No thyroid nodule. Prominent and minimally enlarged mediastinal and hilar lymph nodes measuring up to 10 mm are favored to be reactive. There is no pneumothorax, pleural effusion or overt pulmonary edema. Patchy multifocal bilateral biba silar and subpleural predominant groundglass and consolidative opacities. The central airways are pat ent. Tiny hiatal hernia. Cholecystectomy. Hepatic steatosis. Unremarkable soft tissues. No acute frac ture or suspicious bone lesion. Degenerative changes of the shoulders and spine. IMPRESSION: 1. No pulmonary emboli. 2. Multifocal bibasilar and subpleural predominant groundglass and consolidative opacities are sugges tive of viral pneumonia. 3. Mild mediastinal and hilar adenopathy is likely reactive. 4. Mild cardiomegaly with mild coronary artery calcifications. 5. Hepatic steatosis. ACT 112: Negative or not required by law. The above report was generated using voice recognition software. It may contain grammatical, syntax o r spelling errors. Electronically signed by: Malachi Sibley M.D. 03/21/2021 2:12 PM
--- NOTE | 2021-03-21 14:16 | XRay Report ---
XR chest 1V portable HISTORY: Cough. Weakness. COMPARISON: Chest 03/18/2021. FINDINGS: There are low lung volumes. No pneumothorax. No pleural effusions. The cardiac silhouette i s mildly enlarged. No evidence for pulmonary edema. There are small scattered patchy airspace opaciti es within the bilateral mid to lower lung zones. This likely represents a viral pneumonia. IMPRESSION: Scattered small peripheral airspace opacities within the mid to lower lung zones. This favors a viral pneumonia. ACT 112: Negative or not required by law. Electronically signed by: Tanner Cevallos M.D. 03/21/2021 2:15 PM
--- NOTE | 2021-03-21 15:11 | History & Physical Report ---
Date of Service March 21, 2021 Assessment & Plan (1) Post covid-19 condition, unspecified: (2) Acute respiratory failure with hypoxia: Plan: Will place a monitored observation O2 support with 2 L nasal cannula Continue p.o. steroids as previously prescribed, currently on prednisone 20 mg twice daily As needed albuterol nebs Patient was started on Levaquin in the ER for possible superimposed pneumonia. We will change his over to oral Augmentin Monitor overnight. If no worsening, consider home O2 evaluation with discharge for possible O2 supplementation while he convalesces from Covid History of Present Illness Chief Complaint: SOB Primary Care Provider: KEVIN Saini This is a 55-year-old male with past medical history recent Covid that presents today with worsening shortness of breath. Patient is accompanied by his and both are good historians. Patient was diagnosed with Covid approximately 3 weeks ago. He was treated for this by his PCP and initially no further issues. However, over the past few days he has been getting much more shortness of breath. He has dyspnea on exertion. He denies any fevers. He does have a dry hacking cough that is only minimally productive. He apparently had a very brief syncopal episode secondary to severe coughing. In the emergency room, work-up included a CT angiogram that was negative for PE. He does have resolving bilateral groundglass infiltrates are consistent with a viral pneumonia. He is now Covid negative. Of note, he is unvaccinated. Of more concern, he was hypoxic down to 88%, he is up to 94% on 2 L nasal cannula. He is now being placed in observation for the treatment of secondary hypoxia. Allergies Allergy/AdvReac Type Severity Reaction Status Date / Time shellfish derived Allergy Severe THROAT Verified 03/21/21 14:48 SWELLING,RASH NAUSEA AND VOMITING milk Allergy Intermediate Gastrointestinal Verified 03/21/21 14:48 Upset iodine Allergy Mild TOPICAL-JOCELYN Verified 03/21/21 14:48 H Home Medications Medication Instructions Recorded Confirmed Type acetaminophen 500 mg tablet 1,000 mg PO Q6H PRN 04/15/18 03/21/21 History (Tylenol Extra Strength) ibuprofen 200 mg tablet (Advil) 400 - 600 mg PO Q6H PRN 01/13/19 03/21/21 History zinc 50 mg tablet 50 mg PO DAILY 06/30/19 03/21/21 History albuterol sulfate 90 mcg/actuation 2 inh INHALATION Q4H PRN #8.5 g 03/18/21 03/21/21 Rx aerosol inhaler (Proventil HFA) azithromycin 250 mg tablet See Rx Instructions .ROUTE 03/18/21 03/21/21 Rx (Zithromax Z-Mando) .COMPLEX #6 tab prednisone 20 mg tablet 20 mg PO BID 5 Days #10 tab 03/18/21 03/21/21 Rx amoxicillin 500 mg capsule 0 mg PO DIRECTED PRN 03/21/21 03/21/21 History Past Med/Surg History Medical History Osteoarthritis Surgical History H/O knee surgery R/L X 15 TOTAL SURGERIES H/O shoulder surgery LEFT History of cholecystectomy History of colonoscopy History of revision of total replacement of left knee joint History of total knee replacement R/L S/P epidural steroid injection Family History Other No family history of adverse response to anesthesia Social History Smoking Status: Never smoker Second Hand Exposure: No; Hx Alcohol Use: Yes Alcohol type: hard liquor Hx Substance Use: No Preferred Language: [place] Communication Ability: Effective Wire Spring Relay Adjuster Required: No Beliefs That Will Affect Care: None Current Living Situation: Spouse and Family Feels Safe at Home: Yes Assistive Devices: None Review of Systems Constitutional: no fever, no chills, no weakness, no weight loss and no weight gain Eyes: as per Subjective / HPI Respiratory: + cough, + dyspnea, + dyspnea on exertion and + pain with cough; no chest congestion and no sputum production Cardiovascular: no chest pain, no orthopnea, no palpitations, no lightheadedness and no edema Gastrointestinal: no abdominal pain, no nausea, no vomiting, no constipation and no diarrhea/loose stools Musculoskeletal: no back pain, no neck pain, no joint pain, no stiffness and no myalgia Integumentary: no rash Neurologic: no gait abnormality, no unsteadiness, no falls and no generalized weakness Physical Exam Constitutional: cooperative; no acute distress Neck: trachea midline, no thyromegaly Respiratory: normal respiratory effort Auscultation: lungs clear to auscultation bilaterally and + crackles; no rales, no rhonchi and no wheezes Cardiovascular: Rate/Rhythm: regular rate and regular rhythm Heart Sounds: normal S1 and normal S2 Gastrointestinal (Abdomen): Inspection/Auscultation: abdomen normal to inspection Percussion/Palpation: abdomen soft; abdomen nontender, no guarding, abdomen not rigid and no hepatosplenomegaly Skin: no rashes, warm and dry Results & Data Results & Data ([facility]) Vital Signs (Past 12 Hours) Vital Signs Temp Pulse Pulse Resp BP BP Pulse Ox 03/21/21 14:35 37.9 C H 03/21/21 13:56 101 H 20 112/72 94 03/21/21 12:18 113 H 20 94 03/21/21 12:02 115 H 18 141/87 H 94 03/21/21 11:52 37.9 C H 136 H 24 110/78 88 L Laboratory Results Laboratory Results WBC 10.09 K/uL (4.8-10.8) 03/21/21 12:15 RBC 4.87 M/uL (4.7-6.1) 03/21/21 12:15 Hgb 15.4 g/dL (14.0-18.0) 03/21/21 12:15 Hct 45.7 % (42-52) 03/21/21 12:15 MCV 93.8 fL (80-100) 03/21/21 12:15 MCH 31.6 pg (25-34) 03/21/21 12:15 MCHC 33.7 g/dL (32-36) 03/21/21 12:15 RDW Std Deviation 40.1 fL (36.4-46.3) 03/21/21 12:15 RDW Coeff of Jose Manuel 11.8 % (11.5-14.5) 03/21/21 12:15 Plt Count 307 K/uL (130-400) 03/21/21 12:15 MPV 9.7 fL (7.4-10.4) 03/21/21 12:15 Immature Gran % (Auto) 0.2 % 03/21/21 12:15 Neut % (Auto) 83.6 % 03/21/21 12:15 Lymph % (Auto) 7.5 % 03/21/21 12:15 Stephenson % (Auto) 8.6 % 03/21/21 12:15 Eos % (Auto) 0.0 % 03/21/21 12:15 Baso % (Auto) 0.1 % 03/21/21 12:15 Neut # (Auto) 8.43 K/uL (1.4-6.5) H 03/21/21 12:15 Lymph # (Auto) 0.76 K/uL (1.2-3.4) L 03/21/21 12:15 Stephenson # (Auto) 0.87 K/uL (0.11-0.59) H 03/21/21 12:15 Eos # (Auto) 0.00 K/uL (0-0.5) 03/21/21 12:15 Baso # (Auto) 0.01 K/uL (0-0.2) 03/21/21 12:15 Immature Gran # (Auto) 0.02 K/uL (0.00-0.02) 03/21/21 12:15 D-Dimer 540 ug/L FEU (0-500) H* 03/21/21 12:15 Sodium 134 mmol/L (136-145) L 03/21/21 12:15 Potassium 3.2 mmol/L (3.5-5.1) L 03/21/21 12:15 Chloride 100 mmol/L (98-107) 03/21/21 12:15 Carbon Dioxide 25 mmol/L (21-32) 03/21/21 12:15 Anion Gap 9 (3-11) 03/21/21 12:15 BUN 15 mg/dl (6-23) 03/21/21 12:15 Creatinine 0.89 mg/dl (0.6-1.4) 03/21/21 12:15 Est Cr Clr Drug Dosing 131.0 ml/min 03/21/21 12:15 Est GFR ( Amer) 113.1 ml/min 03/21/21 12:15 Est GFR (Non-Af Amer) 97.6 ml/min 03/21/21 12:15 BUN/Creatinine Ratio 16.9 (10-20) 03/21/21 12:15 Glucose 114 mg/dl (70-99(Fasting)) H 03/21/21 12:15 Calcium 8.7 mg/dl (8.5-10.1) 03/21/21 12:15 Total Bilirubin 0.6 mg/dl (0.2-1.0) 03/21/21 12:15 AST 40 U/L (13-39) H 03/21/21 12:15 ALT 118 U/L (7-52) H 03/21/21 12:15 Alkaline Phosphatase 56 U/L (34-104) 03/21/21 12:15 Troponin I < 0.03 ng/ml (0-0.04) 03/21/21 12:15 Total Protein 6.8 gm/dl (6.0-8.3) 03/21/21 12:15 Albumin 4.0 gm/dl (3.4-5.0) 03/21/21 12:15 Globulin 2.8 gm/dl (2.5-4.0) 03/21/21 12:15 Albumin/Globulin Ratio 1.4 (0.9-2) 03/21/21 12:15 Lipase 40 U/L (11-82) 03/21/21 12:15 SARS-CoV-2, RNA, NAAT NEGATIVE (NEGATIVE) 03/21/21 12:15 Impressions Chest X-Ray 03/21/21 00:00 XR chest 1V portable HISTORY: Cough. Weakness. COMPARISON: Chest 03/18/2021. FINDINGS: There are low lung volumes. No pneumothorax. No pleural effusions. The cardiac silhouette is mildly enlarged. No evidence for pulmonary edema. There are small scattered patchy airspace opacities within the bilateral mid to lower lung zones. This likely represents a viral pneumonia. IMPRESSION: Scattered small peripheral airspace opacities within the mid to lower lung zones. This favors a viral pneumonia. ACT 112: Negative or not required by law. Electronically signed by: Tanner Cevallos M.D. 03/21/2021 2:15 PM Chest CTA 03/21/21 12:53 CT angio chest PE protocol CT DOSE: 865.27 mGy.cm HISTORY: 55 years-old Male with PE. Acute shortness of breath with cough and possible bronchitis TECHNIQUE: Multiple CTA images of the chest were obtained after the intravenous administration of 120 ml Optiray. Coronal and sagittal MIPS were obtained from the axial data set and were submitted for review. All measurements were obtained according to NASCET criteria. A dose lowering technique was utilized adhering to the principles of ALARA. COMPARISON: Chest radiograph of same day FINDINGS: CTA: Mild cardiomegaly. There is no pericardial effusion. Mild coronary artery calcifications. No thoracic aortic aneurysm or dissection. There is patency of the imaged great vessels. The pulmonary arterial tree segmental and subsegmental branches are suboptimally evaluated secondary to respiratory motion artifact and contrast bolus timing. No central pulmonary emboli are identified. CT CHEST: No thyroid nodule. Prominent and minimally enlarged mediastinal and hilar lymph nodes measuring up to 10 mm are favored to be reactive. There is no pneumothorax, pleural effusion or overt pulmonary edema. Patchy multifocal bilateral bibasilar and subpleural predominant groundglass and consolidative opacities. The central airways are patent. Tiny hiatal hernia. Cholecystectomy. Hepatic steatosis. Unremarkable soft tissues. No acute fracture or suspicious bone lesion. Degenerative changes of the shoulders and spine. IMPRESSION: 1. No pulmonary emboli. 2. Multifocal bibasilar and subpleural predominant groundglass and consolidative opacities are suggestive of viral pneumonia. 3. Mild mediastinal and hilar adenopathy is likely reactive. 4. Mild cardiomegaly with mild coronary artery calcifications. 5. Hepatic steatosis. ACT 112: Negative or not required by law. The above report was generated using voice recognition software. It may contain grammatical, syntax or spelling errors. Electronically signed by: Malachi Sibley M.D. 03/21/2021 2:12 PM PG Care Time/CCT Total # of Minutes Spent Total Time Spent with Patient: Total time spent is greater than 50% in coordination of care (as documented) at patient's floor/unit and/or counseling patient: Coding Level of Care Code INT OBSERVATION CARE 70M LVL 3 Diagnoses Post covid-19 condition, unspecified U09.9 Acute respiratory failure with hypoxia J96.01
--- NOTE | 2021-03-21 16:29 | Electrocardiogram Report ---
Test Reason : Blood Pressure : / mmHG Vent. Rate : 119 BPM Atrial Rate : 119 BPM P-R Int : 142 ms QRS Dur : 104 ms QT Int : 320 ms P-R-T Axes : 033 -16 -06 degrees QTc Int : 450 ms Sinus tachycardia Poor R wave progression, consider anterior MN vs. lead placement vs. LVH Abnormal ECG When compared with ECG of 18-MAR-2021 13:25, Premature ventricular complexes are no longer Present Confirmed by Gonzales Oakes ([id number]) on 03/21/2021 4:28:49 PM Referred By: REFERRED SELF Confirmed By:Gonzales Oakes
[2021-03-21] MEDS ORDERED: ONDANSETRON INJ 2 MG/ML 2 ML VIAL IV PRN (20:29)
[2021-03-21] MEDS ORDERED: ALBUTEROL HFA 8 GM INHALER INH PRN (20:29)
[2021-03-21] MEDS: ENOXAPARIN INJ 40 MG/0.4 ML SYR SQ SCH (21:53)
[2021-03-21] MEDS: AMOXICILLIN/CLAVULANATE 875 MG TAB PO SCH (21:53)
[2021-03-21] MEDS: predniSONE 20 MG TAB PO SCH (21:56)
[2021-03-22 06:38] LABS: Basophils # (auto) 0.01 K/uL (0-0.2); Basophils % (auto) 0.1 %; Hematocrit (blood only) 46.1 % (42-52); Hemoglobin 15.8 g/dL (14.0-18.0); Immature Granulocytes # (auto) 0.04 K/uL (0.00-0.02); Immature Granulocytes % (auto) 0.4 %; Lymphocytes # (auto) 0.78 K/uL (1.2-3.4); Lymphocytes % (auto) 7.7 %; Mean Corpuscular Hemoglobin 32.4 pg (25-34); Mean Corpuscular Hgb Conc 34.3 g/dL (32-36); Mean Corpuscular Volume 94.7 fL (80-100); Mean Platelet Volume 10.3 fL (7.4-10.4); Monocytes # (auto) 0.72 K/uL (0.11-0.59); Monocytes % (auto) 7.1 %; Neutrophils # (auto) 8.62 K/uL (1.4-6.5); Neutrophils % (auto) 84.7 %; Platelet Count 327 K/uL (130-400); RDW Coefficient of Variation 11.8 % (11.5-14.5); RDW Standard Deviation 40.5 fL (36.4-46.3); Red Blood Count 4.87 M/uL (4.7-6.1); White Blood Count 10.17 K/uL (4.8-10.8)
[2021-03-22 07:34] LABS: BUN Creatinine Ratio 21.4 (10-20); Calcium 9.1 mg/dl (8.5-10.1); Creatinine Clr Calc Pharmacy 138.2 ml/min; Est GFR (African American) 115.9 ml/min; Magnesium 2.2 mg/dl (1.7-2.4); Potassium 4.4 mmol/L (3.5-5.1)
[2021-03-22] MEDS: predniSONE 20 MG TAB PO SCH (08:33)
[2021-03-22] MEDS: ZINC SULFATE 220 MG CAPSULE PO SCH (08:33)
[2021-03-22] MEDS: AMOXICILLIN/CLAVULANATE 875 MG TAB PO SCH (08:33)
[2021-03-22 12:16] LABS: Influenza A virus by PCR Negative (Neg); Influenza B virus by PCR Negative (Neg); RSV by PCR Negative (Neg)
[2021-03-22 12:36] LABS: SARS CoV2 RNA(COVID-19) InHosp POSITIVE (Negative)
[2021-03-22] MEDS: guaiFENesin 600 MG TABCR PO SCH ×2 (13:38→20:38)
[2021-03-22] MEDS: levoFLOXacin/D5W 750 MG/150 ML BAG IV SCH (13:38)
[2021-03-22] MEDS: dexAMETHasone 6 MG in SYRINGE 0 ML IV SCH (16:02)
--- NOTE | 2021-03-22 16:48 | Hospitalist Progress Note ---
Date of Service March 22, 2021 Assessment & Plan (1) Pneumonia due to COVID-19 virus: Plan: Initially told multiple providers he tested positive three weeks ago however he was actually tested on and sick with sinus symptoms for 2-5 days prior to this (his thinks it was just for a couple of days) Unvaccinated First symptoms: suspected Saturday however unclear therefore will take day of illness from test - therefore admitted on day 9 of illness. First tested positive: Mar 13, additional Cepheid positive here O2 requirement on admission - 2LPM O2 Dexamethasone 6mg IV daily for 10 days or until hospital discharge if off oxygen Outside therapeutic window for remdesivir CRP 2.47 [2/2] - does not qualify for baricitinib from this or oxygen requirement Discussed proning as able Start guaifenesin (2) Acute respiratory failure with hypoxia: Plan: Secondary to COVID-19 pneumonia +/- secondary bacterial infection Aim O2 sats greater than 90% (3) Bacterial pneumonia: Plan: Possible. Procalcitonin negative however he has a mild neutrophilia and possible partially treated with antibiotics as an outpatient. Follow-up sputum culture He feels much improved after Levaquin given therefore seems reasonable to continue this for 5-7 days pending clinical course but my impression is this is just the inflammatory stage of COVID more than anything else. Plan: VTE Prophylaxis - Lovenox 40mg SQ daily given relatively low d-dimer I do not feel he needs twice daily dosing at this time Diet - regular Disposition - stable for transfer to med/surg, no need for telemetry Admission and Anticipated Discharge Date Admission Date: March 21, 2021 Subjective Long discussion with patient and his (over the phone). Initially he had been telling multiple providers (including myself) that his symptoms started 3 weeks ago. On further investigating his Covid test with [facility] was actually on the . His thinks he was sick just for a few days before this however the patient feels it is more like 5 days. Initially symptoms of upper respiratory illness with nasal congestion and sinus pain which he gets usually this time once a year. On this occasion however his symptoms to be much more severe with extreme fatigue, shortness of breath and presyncope. He reports having sinusitis once a year usually at this time which occasionally turns into bronchitis and only very occasionally pneumonia. He is not vaccinated for COVID-19. He does report impressive weight loss over the last 2 years of approximately 50 pounds through dieting. Initially he told me no significant improvement since admission however after getting his Levaquin dose for today he reported it having a significant effect on his symptoms. No significant effect of albuterol. Review of Systems Review of Systems: All systems reviewed & are unremarkable except as noted in Subjective Physical Exam Constitutional: well developed, well nourished and + overweight; no acute distress Neck: trachea midline, no thyromegaly Respiratory: normal respiratory effort Auscultation: lungs clear to auscultation bilaterally and + crackles; no rales, no rhonchi and no wheezes Cardiovascular: Rate/Rhythm: regular rate and regular rhythm Heart Sounds: normal S1 and normal S2 Extremities: no pedal edema Gastrointestinal (Abdomen): Inspection/Auscultation: abdomen normal to inspection Percussion/Palpation: abdomen soft; abdomen nontender, no guarding, abdomen not rigid and no hepatosplenomegaly Skin: no rashes, warm and dry Neurologic: moves all extremities and awake; not confused Psychiatric: A+Ox3, euthymic affect Results & Data Results & Data ([facility]) Vital Signs (Past 12 Hours) Vital Signs Temp Pulse Pulse Resp BP BP Pulse Ox 03/22/21 15:05 37.3 C 98 H 18 145/96 H 93 03/22/21 14:00 37.3 C 109 H 18 175/84 H 90 03/22/21 11:26 36.7 C 106 H 20 143/83 H 90 03/22/21 08:00 90 03/22/21 07:00 36.5 C 92 H 20 133/81 92 03/22/21 06:01 18 92 PG Care Time/CCT Total # of Minutes Spent Total Time Spent: 75 Total Time Spent with Patient: Total time spent is greater than 50% in coordination of care (as documented) at patient's floor/unit and/or counseling patient: Coding Level of Care Code 04420 Subseq Hosp Care Lvl 3 Diagnoses Acute respiratory failure with hypoxia J96.01 Pneumonia due to COVID-19 virus U07.1; J12.82 Bacterial pneumonia J15.9
[2021-03-22] MEDS: ENOXAPARIN INJ 40 MG/0.4 ML SYR SQ SCH (20:37)
[2021-03-23] MEDS: guaiFENesin 600 MG TABCR PO SCH ×2 (08:00→20:43)
[2021-03-23] MEDS: ACETAMINOPHEN 500 MG TAB PO PRN ×2 (08:00→19:07)
[2021-03-23] MEDS: dexAMETHasone 6 MG in SYRINGE 0 ML IV SCH (08:01)
[2021-03-23] MEDS: ZINC SULFATE 220 MG CAPSULE PO SCH (08:01)
--- NOTE | 2021-03-23 12:08 | Hospitalist Progress Note ---
Date of Service March 23, 2021 Assessment & Plan (1) Pneumonia due to COVID-19 virus: Plan: Initially told multiple providers he tested positive three weeks ago however he was actually tested on and sick with sinus symptoms for 2-5 days prior to this (his thinks it was just for a couple of days) Unvaccinated First symptoms: around 03/08/21 First tested positive: Mar 13, additional Cepheid positive here O2 requirement on admission - 2L, up to 3L this morning but back to 2L, tried him on room air he was 87% Dexamethasone 6mg IV daily for 10 days, day 3 Levaquin for 5-7 days Outside therapeutic window for remdesivir CRP only 2.47 Discussed proning as able, he is compliant can pull 2500mL on incentive spirometer (2) Acute respiratory failure with hypoxia: Plan: Secondary to COVID-19 pneumonia +/- secondary bacterial infection Aim O2 sats greater than 90% stable on 2L today he was 87% on room air when I was in the room (3) Bacterial pneumonia: Plan: suspected, got better with Levaquin but Procalcitonin negative complete 5-7 days of Levaquin Plan: VTE Prophylaxis - Lovenox 40mg SQ daily given relatively low d-dimer, however, would favor Xarelto 10mg daily for a month Diet - regular Disposition - try to discharge tomorrow Admission and Anticipated Discharge Date Admission Date: March 21, 2021 Subjective patient doing well, down to 2L, no distress, took his oxygen off to get cleaned up, was not short of breath reviewed his chart he is breathing comfortably, has a productive cough, can pull 2500mL on incentive spirometer eating really well, no fever, no diarrhea has some chest tightness and sharp pain with cough Review of Systems Review of Systems: All systems reviewed & are unremarkable except as noted in Subjective Physical Exam Physical Exam: General: well developed, well nourished, no acute distress, comfortable Neck: supple, trachea midline, normal thyroid Lungs: clear to auscultation bilaterally, normal respiratory effort, no accessory muscle use, no distress Heart: regular S1 and S2, no murmur, peripheral pulses normal, capillary refill normal, no edema Abdomen: soft, NT, ND, + BS, no hepatomegaly, normal to percussion Extremities: normal in appearance, no cyanosis, no petechiae, strength is 5/5 bilaterally Neuro: awake, cooperative, moves all extremities, no focal motor deficits, CN II-XII intact, sensation in extremities intact, normal speech Skin: warm, dry, no rash, normal turgor Psych: Awake, alert oriented x 3, euthymic affect Results & Data Results & Data ([facility]) Vital Signs (Past 12 Hours) Vital Signs Temp Pulse Resp BP Pulse Ox 03/23/21 07:00 37.3 C 101 H 20 130/82 92 Laboratory Results Laboratory Results - last 24 hr 03/22/21 11:15 SARS-CoV-2 (PCR) POSITIVE A* Influenza Type A (PCR) Negative Influenza Type B (PCR) Negative RSV (RT-PCR) Negative Medications Administered Current Inpatient Medications Acetaminophen (Acetaminophen 500 Mg Tab) 500 mg PO Q6H PRN PRN Reason: Pain Stop: 04/20/21 20:34 Last Admin: 03/23/21 08:00 Dose: 500 mg Documented by: Albuterol (Albuterol Hfa 8 Gm Inhaler) 2 puffs INH Q4R PRN PRN Reason: shortness of breath or wheezing Stop: 04/20/21 20:28 Last Admin: 03/22/21 06:00 Dose: 2 puffs Documented by: Enoxaparin Sodium (Enoxaparin Inj 40 Mg/0.4 Ml Syr) 40 mg SQ Q24H SCAR Stop: 04/20/21 20:59 Last Admin: 03/22/21 20:37 Dose: 40 mg Documented by: Guaifenesin (Guaifenesin 600 Mg Tabcr) 600 mg PO Q12 SCAR Stop: 04/21/21 11:29 Last Admin: 03/23/21 08:00 Dose: 600 mg Documented by: Levofloxacin/Dextrose (Levaquin/D5w) 750 mg in 150 mls @ 100 mls/hr IV Q24H SCAR; Protocol Stop: 03/28/21 13:59 Last Infusion: 03/22/21 15:09 Dose: Infused Documented by: Dexamethasone 6 mg/ Syringe 1.5 mls @ 1 mls/min IV QAM [facility] Stop: 03/31/21 15:44 Last Admin: 03/23/21 08:01 Dose: 1 mls/min Documented by: Ondansetron HCl (Ondansetron Inj 2 Mg/Ml 2 Ml Vial) 4 mg IV Q6H PRN PRN Reason: Nausea Stop: 04/20/21 20:28 Zinc Sulfate (Zinc Sulfate 220 Mg Capsule) 220 mg PO DAILY SCAR Stop: 04/21/21 08:59 Last Admin: 03/23/21 08:01 Dose: 220 mg Documented by: PG Care Time/CCT Total # of Minutes Spent Total Time Spent with Patient: Total time spent is greater than 50% in coordination of care (as documented) at patient's floor/unit and/or counseling patient: Coding Level of Care Code 49231 Subseq Hosp Care Lvl 3 Diagnoses Pneumonia due to COVID-19 virus U07.1; J12.82 Acute respiratory failure with hypoxia J96.01 Bacterial pneumonia J15.9
[2021-03-23] MEDS: levoFLOXacin/D5W 750 MG/150 ML BAG IV SCH (15:03)
[2021-03-23] MEDS: ENOXAPARIN INJ 40 MG/0.4 ML SYR SQ SCH (20:43)
[2021-03-24] MEDS: dexAMETHasone 6 MG in SYRINGE 0 ML IV SCH (08:47)
[2021-03-24] MEDS: ACETAMINOPHEN 500 MG TAB PO PRN (08:47)
[2021-03-24] MEDS: ZINC SULFATE 220 MG CAPSULE PO SCH (08:47)
[2021-03-24] MEDS: guaiFENesin 600 MG TABCR PO SCH (08:49)
[2021-03-24] MEDS: levoFLOXacin/D5W 750 MG/150 ML BAG IV SCH (13:27)
--- NOTE | 2021-03-27 18:52 | Discharge Summary ---
Date of Service March 24, 2021 Admission HPI Per Admitting Provider This is a 55-year-old male with past medical history recent Covid that presents today with worsening shortness of breath. Patient is accompanied by his and both are good historians. Patient was diagnosed with Covid approximately 3 weeks ago. He was treated for this by his PCP and initially no further issues. However, over the past few days he has been getting much more shortness of breath. He has dyspnea on exertion. He denies any fevers. He does have a dry hacking cough that is only minimally productive. He apparently had a very brief syncopal episode secondary to severe coughing. In the emergency room, work-up included a CT angiogram that was negative for PE. He does have resolving bilateral groundglass infiltrates are consistent with a viral pneumonia. He is now Covid negative. Of note, he is unvaccinated. Of more concern, he was hypoxic down to 88%, he is up to 94% on 2 L nasal cannula. He is now being placed in observation for the treatment of secondary hypoxia. Principal Diagnosis COVID 19 pneumonia Acute hypoxic respiratory failure Discharge Exam General: well developed, well nourished, no acute distress, comfortable Neck: supple, trachea midline, normal thyroid Lungs: clear to auscultation bilaterally, normal respiratory effort, no accessory muscle use, no distress Heart: regular S1 and S2, no murmur, peripheral pulses normal, capillary refill normal, no edema Abdomen: soft, NT, ND, + BS, no hepatomegaly, normal to percussion Extremities: normal in appearance, no cyanosis, no petechiae, strength is 5/5 bilaterally Neuro: awake, cooperative, moves all extremities, no focal motor deficits, CN II-XII intact, sensation in extremities intact, normal speech Skin: warm, dry, no rash, normal turgor Psych: Awake, alert oriented x 3, euthymic affect Discharge Data Allergies Allergy/AdvReac Type Severity Reaction Status Date / Time shellfish derived Allergy Severe THROAT Verified 03/21/21 14:48 SWELLING,RASH NAUSEA AND VOMITING milk Allergy Intermediate Gastrointestinal Verified 03/21/21 14:48 Upset iodine Allergy Mild TOPICAL-JOCELYN Verified 03/21/21 14:48 H Consultations 03/21/21 14:06 ED Decision to Admit Stat Ordered Studies 03/21/21 12:53 CT angio chest PE protocol Stat Hospital Course (1) Pneumonia due to COVID-19 virus: First symptoms: around 03/08/21 First tested positive: Mar 13, additional Cepheid positive here O2 requirements have been 2-3L at rest for 4 days now, not getting worse 2 step today: 2L at rest and 3L on exertion Dexamethasone 6mg IV daily for 10 days, day 4 Levaquin day 4 Outside therapeutic window for remdesivir CRP only 2.47 Discussed proning as able, he is compliant can pull 2500mL on incentive spirometer will discharge to home with oxygen provided instructions to follow oxygen levels at home complete 6 days of oral dexamethasone, 2 days of Levaquin stay well rested, well nourished, well hydrated follow up with PCP (2) Acute respiratory failure with hypoxia: Secondary to COVID-19 pneumonia +/- secondary bacterial infection Aim O2 sats greater than 90% stable on 2L today 2 step shows he needs 2L at rest and 3L on exertion (3) Bacterial pneumonia: suspected, got better with Levaquin but Procalcitonin negative complete 2 more days of Levaquin VTE Prophylaxis - Lovenox 40mg SQ daily while here, give Xarelto on discharge Total Time Total Time Spent Total Time Spent (In Minutes): 33 minutes Discharge Plan Discharge Items Patient Disposition: Home - Self-Care Reason For Visit: HYPOXIA, POST-COVID Discharge Diagnosis: COVID pneumonia Acute hypoxic respiratory failure Condition on Discharge: Good Goals: complete course of dexamethasone wean off oxygen stay well rested, well nourished, well hydrated Activity: Resume your previous activity Driving/Machine Use: No limitations Weightbearing: Full weightbearing Non-emergency contact: Primary Care Provider Call non-emergency contact if: you have any medication questions Follow-up/Referrals: Cherise Vasques CRNP [Primary Care Provider] - (one week) Diet: Regular Addtl Attending Provider Instructions: Medications: - DEXAMETHASONE: 6mg daily for 6 more days to finish a 10 day course - LEVOFLOXACIN: 750mg daily for 2 more days, this treats bacterial infection - XARELTO: 10mg daily for 30 days, this is low dose blood thinner intended to prevent blood clots associated with COVID infection COVID 19 pneumonia, acute hypoxic respiratory failure responded well to dexamethasone 6mg IV, will change to oral dexamethasone and complete 6 days you require 2L of oxygen at rest and 3L on exertion, you have been stable on 2-3L for 4 days now, no signs of worsening pneumonia anticipate you will need oxygen for about a week to 10 days, get a finger pulse oximeter to monitor oxygen at home goal is greater than 90%, so if you are at 94-95% on 2L you can take off the oxygen and see oxygen level on room air, if you are above 90% you can stay off oxygen finish 2 more days of levofloxacin (antibiotic) take Xarelto for 30 days, this prevents blood clots which is common issue with COVID, even after pneumonia resolves stay well rested, recommend you stay off work next week, focus on getting better, gave you work excuse stay well nourished and well hydrated, use incentive spirometer to encourage deep breathing come back to hospital if you are feeling worse instead of better, specifically if you have trouble breathing, if oxygen level is below 89% on the 2L at rest anticipate that you will fully recover but don't ignore signs that you are getting worse Pending Studies at Discharge: No Stand-Alone Forms: My [facility], Work/School Release, Smoking Ce ssation Medications and DC Order Prescriptions: New dexamethasone 4 mg tablet 6 mg PO DAILY 6 Days Qty: 9 RF: 0 Xarelto 10 mg tablet 10 mg PO DAILY 30 Days Qty: 30 RF: 0 Continued acetaminophen [Tylenol Extra Strength] 500 mg Tablet 1,000 mg PO Q6H PRN (Reason: Pain) RF: 0 ibuprofen [Advil] 200 mg Tablet 400 - 600 mg PO Q6H PRN (Reason: Pain) RF: 0 zinc 50 mg Tablet 50 mg PO DAILY RF: 0 albuterol sulfate [Proventil HFA] 90 mcg/actuation HFA aerosol inhaler 2 inh inhalation Q4H PRN (Reason: shortness of breath or wheezing) Qty: 8.5 RF: 0 Discontinued prednisone 20 mg tablet 20 mg PO BID 5 Days Qty: 10 RF: 0 azithromycin [Zithromax Z-Mando] 250 mg tablet See Rx Instructions .ROUTE .COMPLEX Qty: 6 RF: 0 amoxicillin 500 mg Capsule 0 mg PO DIRECTED PRN (Reason: PRIOR TO DENTAL VISITS.) RF: 0 Discharge Orders: Discharge Order (Routine); Ordered 03/24/21 Ordered By: Mak Parker Admission Data Admit Date/Time: 03/21/21 15:45 Attending Provider: Mak Parker Admit Provider: Jordi Gutierrez Primary Care Provider: Cherise Vasques Other Providers: Jordi Gutierrez Other Interventions: Discharge Summary Assessment (RN) Last Done: 03/24/21 10:15 Coding Level of Care Code D/C DAY MANAGEMENT >30 MINS Diagnoses Pneumonia due to COVID-19 virus U07.1; J12.82 Acute respiratory failure with hypoxia J96.01 Bacterial pneumonia J15.9
== END 2021-03-24 14:26 | disposition home or self-care (01) | DRG 177 ==
LOC: ED 11:48 → 2N 15:45 → SUATTDRO 15:45 → 2N 19:45 → 2W 03-22 13:36

== ENCOUNTER 2023-11-19 17:29 | Observation (INO) ==
--- NOTE | 2023-11-19 17:43 | Emergency Department Note ---
Impression & Plan Chest pain, Frequent unifocal PVCs ED Provider Note NAME: Enoc WOODS AGE: 57 SEX: M : 1965 ARRIVES VIA: Walk-In INFORMANT: Patient, ED PROVIDER(S): Gonzales Hidalgo DO CHIEF COMPLAINT: Chest pain HPI: The patient is a 57-year-old male who presented to the emergency department for an evaluation of chest pain. The patient describes anterior chest pain that goes into his left neck and his left arm. The patient states that began acutely while he was at home. He also noticed palpitations and a fast heart rate. He denies having any shortness of breath at this time. He notices no abdominal pain or vomiting. He notices no leg swelling. He states the pain has improved somewhat with rest but it still continues. The patient has had problems with PVCs in the past. He has had a stress test recently. ROS: See above HPI for pertinent positives & negatives. A total of 10 systems reviewed and were otherwise negative. PAST MEDICAL HISTORY: See Below PAST SURGICAL HISTORY: See Below FAMILY HISTORY: See Below SOCIAL HISTORY: See Below HOME MEDICATIONS: See Below ALLERGIES: See Below VITALS: See Below PHYSICAL EXAMINATION: GENERAL: The patient is awake and alert. He is somewhat anxious appearing. EYES: The conjunctivae are clear. The pupils are round and reactive. EARS, NOSE, MOUTH AND THROAT: The nose is without any evidence of any deformity. NECK: The neck is nontender and supple. RESPIRATORY: Normal respiratory effort is noted there is no evidence of wheezing rhonchi or rales CARDIOVASCULAR: Regular rate and rhythm noted there no murmurs rubs or gallops normal S1 normal S2. GASTROINTESTINAL: The abdomen is soft. Abdomen is nontender. MUSCULOSKELETAL/EXTREMITIES: There is no evidence of gross deformity full range of motion is noted in the hips and shoulders. SKIN: There is no obvious evidence of any rash. Pulses are symmetric in both wrist. NEUROLOGIC: Patient is awake alert and oriented x3 MEDICAL DECISION MAKING: The patient is a 57-year-old male who presented to the emergency department for an evaluation of chest pain. The patient had an acute onset of left-sided chest pain and palpitations. He had radiation to the left arm. The patient's EKG showed frequent ectopy but no acute ischemic changes. Cardiac biomarker was negative. CT the chest was obtained and did not show any signs of venous thromboembolic disease. I discussed the patient's laboratory and radiographic studies with him. He was treated with aspirin nitroglycerin and morphine and was reevaluated multiple times. Pain was not significantly improved and at 1 point even started to escalate. He had serial EKGs in the emergency department. I discussed his condition with the on-call bridge carpenter. Given the patient's ongoing symptoms I do not feel that he would be a good candidate for outpatient management. I will discuss his condition with the hospitalist as well. Triage Nursing notes reviewed. Prior medical records reviewed Vital Signs: reviewed and remarkable for blood pressure. Differential diagnosis: Cardiac ischemia, aortic dissection, pulmonary embolism, pneumothorax, pneumonia, pericarditis, myocarditis, esophageal rupture, GERD, cholecystitis, pancreatitis, musculoskeletal, as well as other pathologies. ER treatment provided: See below Diagnostics interpreted by me: ECG: EKG was obtained in the emergency department. My interpretation is sinus rhythm at 94 bpm. Frequent PVCs were noted. Nonspecific ST segment abnormalities were noted. This was compared to a tracing from March 21, 2021. The PVCs are new otherwise no specific changes were noted. A second EKG was obtained in the emergency department. My interpretation is sinus rhythm at 92 bpm. Frequent PVCs were noted. There is no acute ST segment abnormalities noted. This compares similar to the EKG obtained in the emergency department. A third EKG was obtained in the emergency department because of ongoing and worsening pain. My interpretation is sinus rhythm at 80 bpm. Frequent PVCs are still noted. There is no acute ST segment abnormalities. This compares similar to the EKG obtained in the emergency department. Cardiac Monitoring: An order was placed for continuous cardiac monitoring. The monitor shows a rate of 88 bpm with sinus rhythm. Laboratory studies: As stated above and show below. Imaging studies: See below. Radiographic imaging was reviewed by myself Consultation(s): I discussed this case with Dr. Gong who is on-call for heart alert. I discussed this case with Dr. Junior who is on-call for the [facility] hospitalist group. ED COURSE: Procedures: none Critical Care: I have personally spent greater than 45 minutes of critical care time in the direct management of this patient. This includes bedside care, interpretation of diagnostic studies, and testing, discussion with consultants, patient, and family members, and other required patient management activities. This 45 minutes is in excess of all separately billable procedures. Past Med/Surg History Problem List (Updated 11/19/23 @ 19:25 by Gonzales Hidalgo DO) Frequent unifocal PVCs (Acute) Chest pain (Acute) Pneumonia due to COVID-19 virus Acute respiratory failure with hypoxia (Acute) Left-sided chest wall pain (Acute) Right knee DJD (Acute) Encounter for pre-operative examination Medical History Bacterial pneumonia Acute hyponatremia Acute hypokalemia Osteoarthritis Surgical History H/O shoulder surgery LEFT History of colonoscopy History of revision of total replacement of left knee joint S/P epidural steroid injection H/O knee surgery R/L X 15 TOTAL SURGERIES History of cholecystectomy History of total knee replacement R/L Family History Other No family history of adverse response to anesthesia Social History Smoking Status: Never smoker Second Hand Exposure: No; Do You Dip or Chew Tobacco: No; Hx Alcohol Use: No Hx Substance Use: No Preferred Language: Tamazight Communication Ability: Effective Presiding Judge Required: No Beliefs That Will Affect Care: None marital status: Current Living Situation: Spouse Feels Safe at Home: Yes Assistive Devices: None Allergies Allergies Allergy/AdvReac Type Severity Reaction Status Date / Time shellfish derived Allergy Severe THROAT Verified 03/21/21 14:48 SWELLING,RASH NAUSEA AND VOMITING milk Allergy Intermediate Gastrointestinal Verified 03/21/21 14:48 Upset iodine Allergy Mild TOPICAL-JOCELYN Verified 03/21/21 14:48 H Home Meds Home Medications Medication Instructions Recorded Confirmed acetaminophen 500 mg tablet 1,000 mg PO Q6H PRN Pain 04/15/18 03/21/21 (Tylenol Extra Strength) ibuprofen 200 mg tablet (Advil) 400 - 600 mg PO Q6H PRN Pain 01/13/19 03/21/21 zinc 50 mg tablet 50 mg PO DAILY 06/30/19 03/21/21 Previous Rx's Medication Instructions Recorded albuterol sulfate 90 mcg/actuation 2 inh inhalation Q4H PRN shortness 03/18/21 aerosol inhaler (Proventil HFA) of breath or wheezing #8.5 grams Results & Data (ED) Vital Signs Vital Signs - 24 hr 11/19/23 17:34 11/19/23 17:37 11/19/23 17:44 Temperature 36.6 C Temperature Source Oral Pulse Rate 81 Pulse Rate [Right Finger] Respiratory Rate 28 H Respiratory Effort / Characteristics Blood Pressure 161/95 H Blood Pressure [Left Arm] Blood Pressure Mean 117 Blood Pressure Mean [Left Arm] Blood Pressure Position Semi-fowlers Blood Pressure Position [Left Arm] Pulse Oximetry 95 95 95 Oxygen Delivery Method Room Air Room Air Room Air Oxygen Flow Rate 0 Sepsis Recent Fever Within 48 Hours No Sepsis New/Unexplained Change in Mental Status N/A Sepsis Action Taken by Nursing No Action Required 11/19/23 17:46 11/19/23 17:52 Temperature Temperature Source Pulse Rate 88 Pulse Rate [Right Finger] 81 Respiratory Rate 18 Respiratory Effort / Characteristics Non-Labored Spontaneous Blood Pressure Blood Pressure [Left Arm] 161/95 H Blood Pressure Mean Blood Pressure Mean [Left Arm] 117 Blood Pressure Position Blood Pressure Position [Left Arm] Lying Pulse Oximetry 95 Oxygen Delivery Method Room Air Oxygen Flow Rate Sepsis Recent Fever Within 48 Hours Sepsis New/Unexplained Change in Mental Status Sepsis Action Taken by Shelter Medications Current Medication List: was personally reviewed by me Laboratory Data Attestation: I reviewed the patient's lab results. 11/19/23 17:41 11/19/23 17:41 Lab Results 11/19/23 Range/Units 17:41 WBC 7.81 (4.8-10.8) K/ul RBC 5.23 (4.70-6.10) M/uL Hgb 16.1 (14.0-18.0) g/dl Hct 46.5 (42.0-52.0) % MCV 88.9 (80.0-100.0) fL MCH 30.8 (25.0-34.0) pg MCHC 34.6 (32.0-36.0) g/dL RDW Std Deviation 37.8 (36.4-46.3) fL RDW Coeff of Jose Manuel 11.7 (11.5-14.5) % Plt Count 266 (130-400) K/uL MPV 10.5 (9.4-12.4) fL Immature Gran % (Auto) 0.3 % Neut % (Auto) 68.6 % Lymph % (Auto) 20.0 % [place] % (Auto) 9.3 % Eos % (Auto) 0.9 % Baso % (Auto) 0.9 % Neut # (Auto) 5.36 (1.40-6.50) K/uL Lymph # (Auto) 1.56 (1.20-3.40) K/uL [place] # (Auto) 0.73 H (0.11-0.59) K/uL Eos # (Auto) 0.07 (0.00-0.50) K/uL Baso # (Auto) 0.07 (0.00-0.20) K/uL Immature Gran # (Auto) 0.02 (0.01-0.20) K/uL PT 10.9 (9.0-12.0) Seconds INR 1.0 (0.9-1.1) APTT 28 (21-31) Seconds PTT Ratio 1.0 Sodium 140 (136-145) mmol/L Potassium 4.0 (3.5-5.1) mmol/L Chloride 106 (98-107) mmol/L Carbon Dioxide 26 (21-32) mmol/L Anion Gap 8 (3-11) BUN 15 (6-23) mg/dl Creatinine 1.06 (0.6-1.4) mg/dl Est Cr Clr Drug Dosing 106.0 ml/min Est GFR ( Amer) 91.1 ml/min Est GFR (Non-Af Amer) 78.6 ml/min BUN/Creatinine Ratio 14.2 (10-20) Glucose 91 (70-99(Fasting)) mg/dl Calcium 9.7 (8.6-10.3) mg/dl Total Bilirubin 0.8 (0.2-1.0) mg/dl AST 24 (13-39) U/L ALT 29 (7-52) U/L Alkaline Phosphatase 51 (34-104) U/L Troponin I High Sens 4.5 (0-20) pg/ml Total Protein 7.3 (6.0-8.3) gm/dl Albumin 4.8 (3.4-5.0) gm/dl Globulin 2.5 (2.5-4.0) gm/dl Albumin/Globulin Ratio 1.9 (0.9-2) Lipase 17 (11-82) U/L Administered Medications Diphenhydramine HCl (Diphenhydramine 50 Mg/Ml Vial) 50 mg IV ONE ONE Stop: 11/19/23 22:29 Last Admin: 11/19/23 18:36 Dose: 50 mg Documented By: PALMIRA Magnesium Sulfate/Dextrose (Magnesium Sulfate / D5w) 1 gm in 100 mls @ 100 mls/hr IV NOW STA Stop: 11/19/23 20:18 Last Admin: 11/19/23 19:26 Dose: 100 mls/hr Documented By: PALMIRA Methylprednisolone (Methylprednisolone 125 Mg/2 Ml Vial) 40 mg IV NOW ONE Stop: 11/19/23 22:29 Last Admin: 11/19/23 18:36 Dose: 40 mg Documented By: PALMIRA Discontinued Medications Aspirin (Aspirin Chew 324 Mg) 324 mg PO NOW STA Stop: 11/19/23 17:38 Last Admin: 11/19/23 17:44 Dose: 324 mg Documented By: ILYA Diphenhydramine HCl (Diphenhydramine 50 Mg/Ml Vial) Confirm Administered Dose 50 mg .ROUTE .STK-MED ONE Stop: 11/19/23 18:35 Last Admin: 11/19/23 18:36 Dose: Not Given Documented By: PALMIRA Ioversol (Optiray 320 125ml) 117 ml IV ONCE ONE Stop: 11/19/23 18:46 Last Admin: 11/19/23 18:46 Dose: 117 ml Documented By: JORGE A Methylprednisolone (Methylprednisolone 125 Mg/2 Ml Vial) Confirm Administered Dose 125 mg .ROUTE .STK-MED ONE Stop: 11/19/23 18:35 Last Admin: 11/19/23 18:36 Dose: Not Given Documented By: PALMIRA Morphine Sulfate (Morphine Sulfate 4 Mg/Ml 1 Ml Carp\Vial) 4 mg IV NOW STA Stop: 11/19/23 17:38 Last Admin: 11/19/23 17:45 Dose: 4 mg Documented By: ILYA Nitroglycerin (Nitroglycerin Sl 0.4 Mg/Tab Tab) 0.4 mg SL NOW STA Stop: 11/19/23 17:38 Last Admin: 11/19/23 17:44 Dose: 0.4 mg Documented By: ILYA Ondansetron HCl (Ondansetron Inj 2 Mg/Ml 2 Ml Vial) 4 mg IV NOW STA Stop: 11/19/23 17:38 Last Admin: 11/19/23 17:45 Dose: 4 mg Documented By: CAW Imaging Data Attestation: I personally reviewed and interpreted this imaging study as follows: My Impression: 1 view chest x-ray was obtained in the emergency department. My interpretation is cardiomegaly, final report below. CT of the chest was obtained in the emergency department. My interpretation was no free air or definite filtrate, final report below. Radiologist's Impression: Chest X-Ray 11/19/23 17:37 XR chest 1V portable CLINICAL HISTORY: Chest pain, nonspecific TECHNIQUE: Single frontal radiograph of the chest was obtained. Comparison: Comparison is made to chest radiograph 03/21/2021 FINDINGS: No lines and tubes are seen. Cardiomegaly is noted. The lungs are clear. No evidence of pleural effusion or pneumothorax. IMPRESSION: No acute chest disease. Cardiomegaly is noted. ACT 112: Negative or not required by law. Electronically signed by: Mak Irene M.D. 11/19/2023 6:31 PM Chest CTA 11/19/23 18:27 CT angio chest PE protocol CLINICAL HISTORY: PE TECHNIQUE: Multidetector row helical CT of the chest was performed with angiographic protocol. Coronal and sagittal reformations were obtained. Coronal and sagittal MIPS were obtained from the axial data set and were submitted for review. Automated dose lowering techniques and/or adjustment according to patient size were utilized for this exam. CT DOSE: 827.24 mGy.cm Comparison: Comparison is made to CT chest 03/21/2021 FINDINGS: Lungs and pleura: Normal. Heart and pericardium: Cardiomegaly is seen with biatrial enlargement. Vessels: No evidence of pulmonary embolism. Mediastinum and jasmin: Subcentimeter lymph nodes are seen. Chest wall and lower neck: Unremarkable. Abdomen: Patient is status post cholecystectomy. Small right adrenal adenoma is seen. Bones: Degenerative changes in the thoracic spine. Left shoulder arthroplasty is seen. IMPRESSION: No acute abnormality and in particular no evidence of pulmonary embolus. ACT 112: Negative or not required by law. Electronically signed by: Mak Irene M.D. 11/19/2023 6:56 PM Discharge Plan Visit Data Chief Complaint: Chest Pain Stated Complaint: CHEST PAIN ED Provider: Gonzales Hidalgo Discharge Problem: Chest pain, Frequent unifocal PVCs Patient Disposition: Being Evaluated by Hospitalist Forms Stand Alone Forms: My [facility] Prescriptions Prescriptions: No Action acetaminophen [Tylenol Extra Strength] 500 mg Tablet 1,000 mg PO Q6H PRN (Reason: Pain) ibuprofen [Advil] 200 mg Tablet 400 - 600 mg PO Q6H PRN (Reason: Pain) zinc 50 mg Tablet 50 mg PO DAILY albuterol sulfate [Proventil HFA] 90 mcg/actuation HFA aerosol inhaler 2 inh inhalation Q4H PRN (Reason: shortness of breath or wheezing) Qty: 8.5 0RF Referrals Referrals: PCP,NO [Physician] - Discharge Problem: Chest pain Qualifiers: Chest pain type: unspecified Qualified Code(s): R07.9 - Chest pain, unspecified
[2023-11-19] MEDS: NITROGLYCERIN SL 0.4 MG/TAB TAB SL STA (17:44)
[2023-11-19] MEDS: ASPIRIN CHEW 324 MG PO STA (17:44)
[2023-11-19] MEDS: ONDANSETRON INJ 2 MG/ML 2 ML VIAL IV STA (17:45)
[2023-11-19] MEDS: MoRPHine SULFATE 4 MG/ML 1 ML CARP\\VIAL IV STA (17:45)
[2023-11-19 18:17] LABS: Basophils # (auto) 0.07 K/uL (0.00-0.20); Basophils % (auto) 0.9 %; Eosinophils # (auto) 0.07 K/uL (0.00-0.50); Eosinophils % (auto) 0.9 %; Hematocrit (blood only) 46.5 % (42.0-52.0); Hemoglobin 16.1 g/dl (14.0-18.0); Immature Granulocytes # (auto) 0.02 K/uL (0.01-0.20); Immature Granulocytes % (auto) 0.3 %; Lymphocytes # (auto) 1.56 K/uL (1.20-3.40); Mean Corpuscular Hemoglobin 30.8 pg (25.0-34.0); Mean Corpuscular Hgb Conc 34.6 g/dL (32.0-36.0); Mean Corpuscular Volume 88.9 fL (80.0-100.0); Mean Platelet Volume 10.5 fL (9.4-12.4); Monocytes # (auto) 0.73 K/uL (0.11-0.59); Monocytes % (auto) 9.3 %; Neutrophils # (auto) 5.36 K/uL (1.40-6.50); Neutrophils % (auto) 68.6 %; Platelet Count 266 K/uL (130-400); RDW Coefficient of Variation 11.7 % (11.5-14.5); RDW Standard Deviation 37.8 fL (36.4-46.3); Red Blood Count 5.23 M/uL (4.70-6.10); White Blood Count 7.81 K/ul (4.8-10.8)
--- NOTE | 2023-11-19 18:33 | XRay Report ---
XR chest 1V portable CLINICAL HISTORY: Chest pain, nonspecific TECHNIQUE: Single frontal radiograph of the chest was obtained. Comparison: Comparison is made to chest radiograph 03/21/2021 FINDINGS: No lines and tubes are seen. Cardiomegaly is noted. The lungs are clear. No evidence of pleural effus ion or pneumothorax. IMPRESSION: No acute chest disease. Cardiomegaly is noted. ACT 112: Negative or not required by law. Electronically signed by: Mak Irene M.D. 11/19/2023 6:31 PM
[2023-11-19] MEDS: diphenhydrAMINE 50 MG/ML VIAL IV ONE (18:36)
[2023-11-19] MEDS: diphenhydrAMINE 50 MG/ML VIAL ONE (18:36)
[2023-11-19] MEDS: methylPREDNISolone 125 MG/2 ML VIAL ONE (18:36)
[2023-11-19] MEDS: methylPREDNISolone 125 MG/2 ML VIAL IV ONE (18:36)
[2023-11-19 18:37] LABS: Albumin Globulin Ratio 1.9 (0.9-2); Albumin Level 4.8 gm/dl (3.4-5.0); BUN Creatinine Ratio 14.2 (10-20); Bilirubin,Total 0.8 mg/dl (0.2-1.0); Calcium 9.7 mg/dl (8.6-10.3); Est GFR (African American) 91.1 ml/min; Est GFR (Non-African American) 78.6 ml/min; Globulin 2.5 gm/dl (2.5-4.0); Total Protein 7.3 gm/dl (6.0-8.3)
[2023-11-19 18:41] LABS: Troponin I High Sensitivity 4.5 pg/ml (0-20)
[2023-11-19] MEDS: OPTIRAY 320 125ml IV ONE (18:46)
[2023-11-19 18:54] LABS: Partial Thromboplastin Time 28 Seconds (21-31); Prothrombin Time 10.9 Seconds (9.0-12.0)
--- NOTE | 2023-11-19 18:58 | CT Scan Report ---
CT angio chest PE protocol CLINICAL HISTORY: PE TECHNIQUE: Multidetector row helical CT of the chest was performed with angiographic protocol. Gordon l and sagittal reformations were obtained. Coronal and sagittal MIPS were obtained from the axial baylee a set and were submitted for review. Automated dose lowering techniques and/or adjustment according to patient size were utilized for this exam. CT DOSE: 827.24 mGy.cm Comparison: Comparison is made to CT chest 03/21/2021 FINDINGS: Lungs and pleura: Normal. Heart and pericardium: Cardiomegaly is seen with biatrial enlargement. Vessels: No evidence of pulmonary embolism. Mediastinum and jasmin: Subcentimeter lymph nodes are seen. Chest wall and lower neck: Unremarkable. Abdomen: Patient is status post cholecystectomy. Small right adrenal adenoma is seen. Bones: Degenerative changes in the thoracic spine. Left shoulder arthroplasty is seen. IMPRESSION: No acute abnormality and in particular no evidence of pulmonary embolus. ACT 112: Negative or not required by law. Electronically signed by: Mak Irene M.D. 11/19/2023 6:56 PM
--- NOTE | 2023-11-19 19:20 | History & Physical Report ---
Date of Service November 19, 2023 Assessment & Plan (1) Chest pain: Plan: Chest pain at rest that developed around 1630 on 11/18 Troponin WNL x 2 Well cardiac etiology is not entirely ruled out, given hours of chest pain, unclear if this is cardiac etiology; ?Pericarditis EKG shows NSR with frequent PVCs Chest CTA revealed no acute evidence of pulmonary embolism; no mention of aortic dissection; does note cardiomegaly with biatrial enlargement TSH ordered, pending Echocardiogram ordered, pending Continue metoprolol succinate 50mg p.o. HS Continues telemetry monitoring Unclear etiology at this time, however leading DDx at this time includes pericarditis, GERD, and MSK (among other etiologies) A.m. CBC, BMP, mag, troponin (2) Frequent PVCs: Plan: Patient did have a stress echo performed 08/2023 at [place] -negative exercise stress echo and EKG for ischemia Frequent unifocal PVCs with occasional bigeminal and trigeminal patterns at rest and in recovery K and mag are WNL Continuous telemetry monitoring (as above) Plan Disposition: Obs - admit to [facility] telemetry DNR/DNI Heart healthy diet VTE PPx: Lovenox 40 mg SQ q24h History of Present Illness Chief Complaint: Chest pain Primary Care Provider: KEVIN Rolon Marco is a 57-year-old male with PMH of PVCs. He presented on 11/18 for constant left-sided chest pain that began around 1630. No prior episodes of similar chest pain. The chest pain radiates to his left shoulder. He characterizes it as "stabbing pain" that comes in spikes that goes straight through to his left upper back. He also endorses a "throbbing pain" that goes down his left shoulder into his left arm. His left arm is reportedly numb. He rates the pain 7/10 at present, and 9/10 at worst. Patient took aspirin 81 mg prior to coming to the hospital; he does not take this on a regular basis. He also took 2 Tylenol this morning for joint pain. No prior history of MA. He is only regular medication is metoprolol succinate 50 mg extended release, which he took last night. He has been taking this since early July. Patient follows with [facility]; Barbara Dalton (PCP) and Sonali Coughlin (Cardiology). He does have a history of PVCs, which she reports he cannot feel. However he developed chest palpitations and pounding chest pain around 1630 today. No PMH of DM, stroke, HTN, PVD, DVT/PE, or GERD to his knowledge. He denies smoking, tobacco use, or alcohol use. No recent bruises, injuries to the chest wall, rashes, or tick bites. No sick contacts. He did have a stress echo done in July at [facility] cardiology. Patient is mildly hypertensive at 161/95 at time of admission; vitals otherwise stable. ED Course: Aspirin 324 mg p.o. Morphine 4 mg IV Nitroglycerin 0.4 mg SL Magnesium sulfate 1 g IV Zofran 4 mg IV Diphenhydramine 50 mg IV Solu-Medrol 40 mg IV ROS: Patient endorses constant left-sided chest pain, sweating, headache, chest palpitations / pounding in chest, chest tightness, and numbness or tingling going down his left arm. Patient denies fever, chills, dizziness, lightheadedness, pleuritic CP, SOB, cough, abdominal pain, N/V/D, changes in urinary/bowel habits, or numbness tingling in his right arm or legs. Allergies Allergy/AdvReac Type Severity Reaction Status Date / Time shellfish derived Allergy Severe THROAT Verified 11/19/23 20:09 SWELLING,RASH NAUSEA AND VOMITING milk Allergy Intermediate Gastrointestinal Verified 11/19/23 20:09 Upset iodine Allergy Mild TOPICAL-JOCELYN Verified 11/19/23 20:09 H Home Medications Medication Instructions Recorded Confirmed Type acetaminophen 500 mg tablet 1,000 mg PO Q6H PRN Pain 04/15/18 11/19/23 History (Tylenol Extra Strength) ibuprofen 200 mg tablet (Advil) 400 - 600 mg PO Q6H PRN Pain 01/13/19 11/19/23 History zinc 50 mg tablet 50 mg PO DAILY 06/30/19 11/19/23 History metoprolol succinate 50 mg 50 mg PO HS 11/19/23 11/19/23 History tablet,extended release 24 hr (Toprol XL) Past Med/Surg History Problem List Frequent PVCs Frequent unifocal PVCs (Acute) Chest pain (Acute) Pneumonia due to COVID-19 virus Acute respiratory failure with hypoxia (Acute) Left-sided chest wall pain (Acute) Right knee DJD (Acute) Encounter for pre-operative examination Medical History Bacterial pneumonia Acute hyponatremia Acute hypokalemia Osteoarthritis Surgical History H/O shoulder surgery LEFT History of colonoscopy History of revision of total replacement of left knee joint S/P epidural steroid injection H/O knee surgery R/L X 15 TOTAL SURGERIES History of cholecystectomy History of total knee replacement R/L Family History Other No family history of adverse response to anesthesia Social History Smoking Status: Never smoker Second Hand Exposure: No; Do You Dip or Chew Tobacco: No; Hx Alcohol Use: No Hx Substance Use: No Preferred Language: Macedonian Communication Ability: Effective Nurse Charge Rn Required: No Beliefs That Will Affect Care: None marital status: Current Living Situation: Spouse Feels Safe at Home: Yes Safety Concerns: Feels Safe At This Time Assistive Devices: Glasses Review of Systems Review of Systems: See HPI above Physical Exam Physical Exam: General: no acute distress; pleasant affect; anxious; non-toxic appearing; well- nourished; cooperative; SpO2 95% on RA HEENT: normocephalic, atraumatic; no scleral icterus; PERRLA; vision and hearing grossly intact Neck: supple; no lymphadenopathy; trachea midline Skin: warm, dry without signs of tenting; no cyanosis; no rashes, bruising, lesions, or erythema noted CV: chest wall NTP; chest pain is nonreproducible on exam; no rashes or bruising noted on the chest wall, left flank, or abdomen; RRR; S1/S2 normal; no murmurs/rubs/gallops; pulses intact and symmetric at radial, DP, and PT Lungs: no acute respiratory distress; symmetrical chest wall expansion; clear breath sounds across all lung jha w/o adventitious sounds; no wheezing ABD: Soft, NTP; BS present; no rebound/guarding; no distention MSK: no tics or fasciculations; no edema noted in the LEs b/l, nonerythematous; 5/5 dinkey skinner strength bilaterally Neuro: A&Ox3; normal mood and affect; fluent speech; no focal deficits; sensation grossly intact in the UE/LEs bilaterally Results & Data Results & Data Vital Signs (Past 12 Hours) Vital Signs Temp Pulse Pulse Resp BP BP Pulse Ox 11/19/23 17:52 88 11/19/23 17:46 81 18 161/95 H 95 11/19/23 17:44 95 11/19/23 17:37 95 11/19/23 17:34 36.6 C 81 28 H 161/95 H 95 O2 Del Method O2 Flow Rate 11/19/23 17:52 11/19/23 17:46 Room Air 11/19/23 17:44 Room Air 0 11/19/23 17:37 Room Air 11/19/23 17:34 Room Air Laboratory Results Abnormal lab results 11/19/23 Range/Units 17:41 [place] # (Auto) 0.73 H (0.11-0.59) K/uL Diagnostic Findings Chest X-Ray 11/19/23 17:37 XR chest 1V portable CLINICAL HISTORY: Chest pain, nonspecific TECHNIQUE: Single frontal radiograph of the chest was obtained. Comparison: Comparison is made to chest radiograph 03/21/2021 FINDINGS: No lines and tubes are seen. Cardiomegaly is noted. The lungs are clear. No evidence of pleural effusion or pneumothorax. IMPRESSION: No acute chest disease. Cardiomegaly is noted. ACT 112: Negative or not required by law. Electronically signed by: Mak Irene M.D. 11/19/2023 6:31 PM Chest CTA 11/19/23 18:27 CT angio chest PE protocol CLINICAL HISTORY: PE TECHNIQUE: Multidetector row helical CT of the chest was performed with angiographic protocol. Coronal and sagittal reformations were obtained. Coronal and sagittal MIPS were obtained from the axial data set and were submitted for review. Automated dose lowering techniques and/or adjustment according to patient size were utilized for this exam. CT DOSE: 827.24 mGy.cm Comparison: Comparison is made to CT chest 03/21/2021 FINDINGS: Lungs and pleura: Normal. Heart and pericardium: Cardiomegaly is seen with biatrial enlargement. Vessels: No evidence of pulmonary embolism. Mediastinum and jasmin: Subcentimeter lymph nodes are seen. Chest wall and lower neck: Unremarkable. Abdomen: Patient is status post cholecystectomy. Small right adrenal adenoma is seen. Bones: Degenerative changes in the thoracic spine. Left shoulder arthroplasty is seen. IMPRESSION: No acute abnormality and in particular no evidence of pulmonary embolus. ACT 112: Negative or not required by law. Electronically signed by: Mak Irene M.D. 11/19/2023 6:56 PM ECG Additional Comments: ECG revealed sinus rhythm with frequent PVCs at 80 bpm; QTc 461 Code Status & VTE Plan Code Status DNR/DNI (discussed with both patient and patient's family at bedside) VTE Prophylaxis Plan VTE Prophylaxis will be ordered: Yes Supervising Physician Co-Signing Physician Notes Patient seen and examined, chart reviewed, case discussed with TONY Hoff and I agree with the assessment and plan as above. In brief, patient is a 57yo male with history of frequent PVCs (high burden, on Metoprolol 50mg po qHS, follows with Cardiology) presenting with acute onset left sided chest pain with radiation into the arm and back with associated diaphoresis and palpitations. No trauma, overuse, no recent illness or vaccinations. Still with episodic pain. On exam patient is resting comfortably, NAD Skin - no rash HEENT - MMM, neck supple, no JVD Heart - +S1/S2, regular with ectopy, PVCs noted on cardiac monitoring, no m/r/g, no reproducible chest wall pain, negative Spurling's test Lungs - CTA, no rales/rhonchi/wheezes Abd - +BS, soft, NT/ND Ext - warm, well perfused, no clubbing/cyanosis or edema Labs and images reviewed Troponin 4.5 --> 3.6 EKG with no acute ischemic changes, sinus arrhythmia and frequent PVCs Assessment/Plan 57yo male presenting with acute episode of chest pain. Workup thus far unremarkable including troponin x 2 negative and EKG with no ischemic changes. -Observation -Telemetry monitoring -Repeat troponin in AM -Check 2D echo -Morphine PRN pain -Remainder as above PG Care Time/CCT Total # of Minutes Spent Total Time Spent with Patient: Total time spent is greater than 50% in coordination of care (as documented) at patient's floor/unit and/or counseling patient: C[place] [address] INT INP/OBS CARE MIN Patient Type Established Medical Decision Making Moderate Complexity Diagnoses Chest pain R07.9 Chest pain type: unspecified Frequent PVCs I49.3 (1) Chest pain Chest pain type: unspecified Qualified Code(s): R07.9 - Chest pain, unspecified
[2023-11-19] MEDS: MAGNESIUM SULFATE / D5W 1 GM/100 ML BAG IV STA (19:26)
[2023-11-19 20:07] LABS: Troponin I High Sensitivity 3.6 pg/ml (0-20)
[2023-11-19] MEDS: FAMOTIDINE 20MG IV PUSH 20 MG/5 ML SYR IV STA (20:36)
[2023-11-19] MEDS: ACETAMINOPHEN 1,000 MG/100 ML VIAL IV STA (20:36)
[2023-11-19] MEDS: ALUMINUM/MAGNESIUM SUSP 30 ML UDC PO STA (20:36)
[2023-11-19 20:52] LABS: Thyroid Stimulating Hormone 1.26 uIu/ml (0.300-4.500)
[2023-11-19] MEDS ORDERED: ACETAMINOPHEN 325 MG TAB PO PRN (22:59)
[2023-11-19] MEDS ORDERED: ONDANSETRON INJ 2 MG/ML 2 ML VIAL IV PRN (22:59)
[2023-11-20] MEDS: METOPROLOL SUCC 50MG EXT REL TAB PO SCH (00:05)
[2023-11-20] MEDS ORDERED: MoRPHine SULFATE 4 MG/ML 1 ML CARP\\VIAL IV PRN (00:18)
[2023-11-20] MEDS ORDERED: MoRPHine SULFATE 2 MG/ML CARP IV PRN (00:18)
[2023-11-20 04:26] VITALS: RESP 16
[2023-11-20 05:43] LABS: Basophils # (auto) 0.03 K/uL (0.00-0.20); Basophils % (auto) 0.3 %; Eosinophils # (auto) 0.01 K/uL (0.00-0.50); Eosinophils % (auto) 0.1 %; Hematocrit (blood only) 44.8 % (42.0-52.0); Hemoglobin 15.4 g/dl (14.0-18.0); Immature Granulocytes # (auto) 0.05 K/uL (0.01-0.20); Immature Granulocytes % (auto) 0.4 %; Lymphocytes # (auto) 1.15 K/uL (1.20-3.40); Lymphocytes % (auto) 10.3 %; Mean Corpuscular Hemoglobin 31.1 pg (25.0-34.0); Mean Corpuscular Hgb Conc 34.4 g/dL (32.0-36.0); Mean Corpuscular Volume 90.5 fL (80.0-100.0); Mean Platelet Volume 10.4 fL (9.4-12.4); Monocytes # (auto) 0.44 K/uL (0.11-0.59); Monocytes % (auto) 3.9 %; Neutrophils # (auto) 9.52 K/uL (1.40-6.50); Platelet Count 233 K/uL (130-400); RDW Coefficient of Variation 11.4 % (11.5-14.5); RDW Standard Deviation 37.6 fL (36.4-46.3); Red Blood Count 4.95 M/uL (4.70-6.10)
[2023-11-20 05:54] LABS: BUN Creatinine Ratio 17.2 (10-20); Calcium 9.2 mg/dl (8.6-10.3); Creatinine Clr Calc Pharmacy 115.8 ml/min; Est GFR (Non-African American) 85.4 ml/min; Magnesium 2.1 mg/dl (1.7-2.4); Potassium 4.5 mmol/L (3.5-5.1)
[2023-11-20] MEDS: ENOXAPARIN INJ 40 MG/0.4 ML SYR SQ SCH (06:12)
--- NOTE | 2023-11-20 07:16 | Hospitalist Progress Note ---
Date of Service November 20, 2023 Assessment & Plan (1) Chest pain: Plan: Chest pain at rest that developed around 1630 on 11/18 Troponin WNL x 2, EKG no acute changes but shows NSR with frequent PVCs Chest CTA revealed no acute evidence of pulmonary embolism; no mention of aortic dissection; does note cardiomegaly with biatrial enlargement TSH normal, electrolytes are replete Patient did have a stress echo performed 08/2023 at [place] -negative exercise stress echo and EKG for ischemia Echocardiogram ordered, pending Continue metoprolol succinate 50mg p.o. HS Plan DNR/DNI VTE PPx: Lovenox 40 mg SQ q24h Admission and Anticipated Discharge Date Admission Date: November 19, 2023 Results & Data Results & Data Vital Signs (Past 12 Hours) Vital Signs Temp Pulse Pulse Resp BP BP Pulse Ox 11/20/23 03:21 97.7 F 75 16 105/69 94 11/19/23 22:55 71 11/19/23 22:48 97.7 F 61 18 119/77 91 11/19/23 22:24 64 16 105/77 91 11/19/23 21:00 62 18 105/77 91 11/19/23 19:30 83 20 121/77 93 O2 Del Method 11/20/23 03:21 Room Air 11/19/23 22:55 11/19/23 22:48 Room Air 11/19/23 22:24 Room Air 11/19/23 21:00 Room Air 11/19/23 19:30 Room Air PG Care Time/CCT Total # of Minutes Spent Total Time Spent with Patient: Total time spent is greater than 50% in coordination of care (as documented) at patient's floor/unit and/or counseling patient: Coding Diagnoses Chest pain R07.9 Chest pain type: unspecified (1) Chest pain Chest pain type: unspecified Qualified Code(s): R07.9 - Chest pain, unspecified
--- OUTSIDE RECORDS SUMMARY | 2023-11-20 11:30 | External Medical Summary | Continuity of Care Document ---
Author Name Unknown Organization [facility] [address] [facility] Address [address] [place], [place] [id number] Care Team Providers Care Erp Developer Name Role Phone Barbara Dalton Primary Care Physician [phone] Encounter [id number] Date(s): 09/26/23 - 09/26/23 [facility] [id number], [address] [place] [address] [phone] Encounter Diagnosis Frequent PVCs(Discharge Diagnosis) - 09/26/23 LBBB (left bundle branch block)(Discharge Diagnosis) - 09/26/23 Discharge Disposition: Home or Self Care Attending Physician: KEVIN Coughlin Sarah A Allergies, Adverse Reactions, Alerts Substance Criticality Severity Reaction Reaction Severity Status shrimp Vomiting Rash Active iodine Vomiting Rash Active Assessment and Plan Extracted from: Title:Cardiology Office Visit Note Author:KEVIN Pitt rd, Sarah A Date:09/26/23 Impression: 1. FrequentPVCsand a singledominant morphologycomprising 22% of total beats 2. Stress echo 08/2023 - Negative exercise stress echocardiogram and EKG for ischemia at 97% MPHR,Average exercise tolerance for age and gender, 115% of predicted, achieving 10.1 METs, Frequent unifocal PVCs with occasional bigeminal and trigeminal patterns at rest and in recovery. The PVC's resolve with higher HR's during exercise,PVC frequency lessened with elevated heart rates. 3. Echo 06/2023 - Mildly dilated left ventricular, Normal LVF with EF 60%,a bnormal septal motion from BBB, Mildly dilated right ventricle with normal systolic function, Tricuspid aortic valve with trace to mild insufficiency. Mr. Woods's studies were reviewed with him. He did have his metoprolol increased after his stress test which he is tolerating well. His heart rate does not allow for further uptitration. He will have a limited echo in 6 months to follow is left ventricle function. He will return to the clinic in 6 months. Medications amoxicillin 500 mg oral capsule Start: 04/15/23 9:26:00 AM EST, 4 cap, PO, As indicated, Disp# 4 cap, Refills: 2, take one hour before dental procedures as directed, Pharmacy: [id number] Start Date: 04/15/23 Status: Ordered CalMag Thins oral tablet Start: 06/28/23 8:50:00 AM EDT Start Date: 06/28/23 Status: Ordered Men's Multi Gummies Start: 06/28/23 8:51:00 AM EDT Start Date: 06/28/23 Status: Ordered metoprolol succinate 50 mg oral tablet, extended release Start: 09/23/23 8:22:00 AM EDT, 1 tab, PO, Daily, Disp# 90 tab, Refills: 3, Pharmacy: [id number] Start Date: 09/23/23 Status: Ordered Mental Status 09/26/23 Barriers to Learning one year None evide nt Mandatory Health Literacy Documentation Yes Health Literacy Communication Barriers N ever Primary Language Surinamese Problem List Condition Confirmation Course Effective Dates Status H ealth Status Informant Sinus congestion Confirmed Active Onychodystrophy Confirmed Active Family history of melanoma Confirmed Active Family history of pneumonia Confirmed Active S/P shoulder replacement Confirmed Active Status post revision of total replacement of right knee Confirmed Active Status post total left knee replacement Confirmed Active Rotator cuff syndrome of left shoulder Confirmed Active Ulnar neuropathy Confirmed Active Actinic keratoses Confirmed Active Osteoarthritis of left glenohumeral joint Confirmed Active Osteoarthritis of left shoulder Confirmed Active Knee osteoarthritis Confirmed Active Seborrheic keratosis Confirmed Active Seborrheic keratoses Confirmed Active Sinusitis Confirmed Active Neural foraminal stenosis of lumbar spine Confirmed Active COVID-19 vaccine series not completed Confirmed Active Diagnosis Diagnosis Type Effective Dates Health Status Cl inical Service Informant Frequent PVCs Discharge Diagnosis 09/26/23 Non-Specified LBBB (left bundle branch block) Discharge Diagnosis 09/26/23 Non-Specified Procedures Procedure Date Related Diagnosis Body Site Status Colonoscopy 1, 2 05/16/23 Complete d ARTHROPLASTY TOTAL SHOULDER 3 01/17/[address] angiography of chest with contrast 4 03/21/21 Completed Chest X-ray 5 03/18/21 Completed Colonoscopy 2020 Completed Lumbar epidural steroid injection 07/03/19 Completed Colonoscopy 6, 7 10/18/17 Complete d Chest X-ray 8 03/30/17 Completed Right Knee - Multiple Surgery 2012 Completed Knee replacement 2010 Comple hong Cholecystectomy 2009 Completed Knee, Left Multiple - Total Replacement 10, 11 01/2008 Completed Colonoscopy 12 Completed 1- Repeat colonoscopy in 5 years for surveillance. 2- Internal hemorrhoids. - Redundant colon. - The examination was otherwise normal on direct and retroflexion views. - No specimens collected. 3auto-populated from documented surgical case 4IMPRESSION: 1. No pulmonary emboli. 2. Multifocal bibasilar and subpleural predominant groundglass and consolidative opacities are suggestive of viral pneumonia. 3. Mild mediastinal and hilar adenopathy is likely reactive. 4. Mild cardiomegaly with mild coronary artery calcifications. 5. Hepatic steatosis. 5impression: NO acute process 6Impression: - Diverticulosis in the sigmoid colon - One 5mm polp in the transverse colon, remove with a cold snare, Resected and retrieved - One 3mm polyp in the ascending colon, removed with a cold byopsy forcps, resected and retrieved 7Pathology: 1. Colon, Transverse, polyp, biopsy: -colonic mucosa with mild hyperplastic changes and lymphoid aggregate. 2. Colon, ascending, polyp, biopsy: -Freatures compatible with inflammatory polyp. Repeat colonoscopy in five years. 8Mildly low lung volumes with hypoventilatory changes. No focal infiltrate to suggest pneumonia. 9rev left 10Left side 11multiple surgeries 124 since age 35 - last one was 4-5 years ago ? 2012 for suspicious polyps Vital Signs Most recent to oldest [Reference Range]: 1 Patient Weight 116 kg (09/26/23 3:26 PM) Heart Rate 54 bpm (09/26/23 3:26 PM) Respiratory Rate 18 br/min (09/26/23 3:26 PM) Blood Pressure 118/60mmHg (09/26/23 3:26 PM) BP Location # 1 Right Arm (09/26/23 3:26 PM) Social History Social History Type Response Smoking Status Never smoked cigaret efren Sex Sex Representation Male (finding) Implantable Device List Procedure Provider Procedure Date Device Type Site Unknown Unknown 01/17/22 Unknown Unknown Device Identifier Serial Number Lot or Batch Number Manufacturing Date Expiration Date Distinct Identification Code MRI Safety Implantable Status Assigning Authority Unknown Unknown [id number] Unknown 02/18/24 Unknown Unknown Active Unk nown Unknown Unknown na Unknown 04/27/26 Unknown Unknown Active Unkn own Unknown Unknown na Unknown 06/21/26 Unknown Unknown Active Unkno wn Unknown Unknown na Unknown 05/24/26 Unknown Unknown Active Unkno wn Cardiology Outpatient Note * KEVIN Coughlin Sarah A: PERFORM, MODIFY Event Display: Cardiology Outpt Note Authored Date: Primary Care Provider KEVIN Dalton Katy Marie Chief Complaint denies chest pain/ tightness, flutters, heart racing, palpitations, shortness of breath, dizziness,or lightheadedness, no edema, no change in activity level, no resent ER visits History of Present Illness Mr. Woods presents for follow up of his asymptomatic frequent PVCs. He feels well. 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 No sob or chest pain. He does not feel any palpitations. Review of Systems All other systems reviewed and negative except as discussed in the HPI Physical Exam Vitals & Measurements HR:54(Monitored) RR:18 BP:118/60 SpO2:98% WT:116.000kg(Dosing) WT:116kg Physical Examination General: Alert and oriented, No acute distress. Respiratory: Lungs are clear to auscultation, Respirations are non-labored. Cardiovascular: Normal rate, Regular rhythm with intermittent ectopic beats, No murmur, No edema,no carotid bruits to auscultation bilaterally. Integumentary: Warm, Dry, [place] Neurologic: Alert, Oriented. Cognition and Speech: Speech clear and coherent. Psychiatric: Cooperative, Appropriate mood & affect. Assessment/Plan Impression: 1. FrequentPVCsand a singledominant morphologycomprising 22% of total beats 2. Stress echo 08/2023 - Negative exercise stress echocardiogram and EKG for ischemia at 97% MPHR,Average exercise tolerance for age and gender, 115% of predicted, achieving 10.1 METs, Frequent unifocal PVCs with occasional bigeminal and trigeminal patterns at rest and in recovery. The PVC's resolve with higher HR's during exercise,PVC frequency lessened with elevated heart rates. 3. Echo 06/2023 - Mildly dilated left ventricular, Normal LVF with EF 60%,abnormal septal motion from BBB, Mildly dilated right ventricle with normal systolic function, Tricuspid aortic valve with trace to mild insufficiency. Mr. Woods's studies were reviewed with him. He did have his metoprolol increased after his stress test which he is tolerating well. His heart rate does not allow for further uptitration. He will have a limited echo in 6 months to follow is left ventricle function. He will return to the clinic in 6 months. Problem List/Past Medical History Ongoing Actinic keratoses COVID-19 vaccine series not completed Family history of melanoma Family history of pneumonia Knee osteoarthritis Neural foraminal stenosis of lumbar spine Onychodystrophy Osteoarthritis of left glenohumeral joint Osteoarthritis of left shoulder Rotator cuff syndrome of left shoulder S/P shoulder replacement Seborrheic keratoses Seborrheic keratosis Sinus congestion Sinusitis Status post revision of total replacement of right knee Status post total left knee replacement Ulnar neuropathy Resolved Encounter for annual general medical examination without abnormal findings in adult Knee pain Low back pain radiating to right lower extremity Procedure/Surgical History Colonoscopy| Service Date: 4CT angiography of chest with contrast| Service Date: 03/21/2021hest X-ray| Service Date: 03/18/2021olonoscopy| Service Date: umbar epidural steroid injection| Service Date: 07/03/2019Colonoscopy| Service Date: 10/18/2017Chest X-ray| Service Date: 03/30/2017Right Knee - Multiple Surgery| Service Date: 2012Knee replacement| Service Date: 2010Cholecystectomy| Service Date: ee, Left Multiple - Total Replacement| Service Date: 01/2008Colonoscopy Medications amoxicillin(amoxicillin 500 mg oral capsule), 2000 mg= 4 cap, PO, As indicated, 2 refills metoprolol(metoprolol succinate 50 mg oral tablet, extended release), 50 mg= 1 tab, PO, Daily, 3 refills multivitamin with minerals(CalMag Thins oral tablet) multivitamin with minerals(Men's Multi Gummies) Allergies iodineVomiting, Rash shrimpVomiting, Rash Social History Smoking Status Never smoked cigarettes Alcohol - Low Risk Exercise - Regular exercise Home/Environment - Low Risk Nutrition/Health - Low Risk Sexual - Low Risk Substance Abuse - Low Risk Tobacco - Low Risk Family History Hodgkin's disease: Brother. Hypertension: Father, Sister and Brother. Skin cancer: Mother. Health Status Family Member(s) Electronic Signature on File CC: KEVIN Ga [address] [place] [id number] Electronically Reviewed/Signed by: KEVIN Kovacs Author Signature Dt/Tm:09/26/2023 04:53 PM [facility] Patient Care team information Care Team Personnel Name: TONY Man, Radha Haq Position: Physician Chute Puller - Orthopaedic Surg Member Role: Lifetime Relationship Address: [address] [place] [id number] Name: KEVIN Dalton Katy Marie Position: Nurse Pract - Family Med Member Role: Primary Care Provider Address: [address] [place] [id number] Name: Amelia Tafoya Position: HIS Supervisor_P Member Role: HIS Lifetime Care Team Related Persons Name: KAYLI RUBIO V Name: WILLIAM WOODS Name: ALEX WOODS V Name: ALEX WOODS V"
--- OUTSIDE RECORDS SUMMARY | 2023-11-20 11:31 | External Medical Summary | Continuity of Care Document ---
Author Name Unknown Organization [address] Address [address] [place] [phone] Care Team Providers Care Regional Facilities Manager Name Role Phone Barbara Dalton Primary Care Physician [phone] Encounter [facility] [id number] Date(s): 05/23/23 - 05/23/[address] [place] [id number] [facility], [address] [place] [address] [phone] Encounter Diagnosis Body mass index [BMI] 32.0-32.9, adult(Discharge Diagnosis) - 05/23/23 PVCs (premature ventricular contractions)(Discharge Diagnosis) - 05/23/23 Discharge Disposition: Home or Self Care Attending Physician: KEVIN Dalton Katy Marie Referring Physician: KEVIN Dalton Katy Marie Allergies, Adverse Reactions, Alerts Substance Reaction Severity Status shrimp Vomiting Rash Active iodine Vomiting Rash Active Assessment and Plan Extracted from: Title:PVCs Author:KEVIN Dalton Katy Marie Date:05/23/23 Body mass index [BMI] 32.0-3 2.9, adult PVCs (premature ventricular contractions) Problem isAcute Goal:maintenance Data:_ Plan:reviewed labs EKG reviewed with MMs. SA with frequent PVCs Holter Cardio referral Discussed return precautions and ER precautions. Patient verbalizes understanding and agrees with plan Medications amoxicillin 500 mg oral capsule Start: 04/15/23 9:26:00 EST, 4 cap, PO, As indicated, Disp# 4 cap, Refills: 2, take one hour beforedental procedures as directed, Pharmacy: [id number] Start Date: 04/15/23 Status: Ordered Mental Status 05/23/23 Barriers to Learning one year None evide nt Mandatory Health Literacy Documentation Yes Health Literacy Communication Barriers N ever Primary Language Vietnamese Problem List Condition Confirmation Course Effective Dates [...] Diagnosis Diagnosis Type Effective Dates Health Status Clinical Service Informant Body mass index [BMI] 32.0-32.9, adult Discharge Diagnosis 05/23/23 Non-Specified PVCs (premature ventricular contractions) Discharge Diagnosis 05/23/23 Non-Specified Procedures Procedure Date Related Diagnosis Body [...] Most recent to oldest [Reference Range]: 1 Height 194 cm (05/23/23 2:55 PM) Patient Weight 121 kg (05/23/23 2:55 PM) Body Mass Index 32.15 kg/m2 (05/23/23 2:55 PM) Temperature [36.5-37.9 DegC] 36.3 DegC *LOW* (05/23/23 2:55 PM) Heart Rate 82 bpm (05/23/23 2:55 PM) Blood Pressure 122/80mmHg (05/23/23 2:55 PM) Cuff Pulse Pressure 42 mmHg (05/23/23 2:55 PM) Social History Social History Type Response Smoking Status Never smoked cigaret efren Sex Implantable Device List Procedure Provider Procedure Date Device Type Site Unknown Unknown 01/17/22 Unknown Unknown Device Identifier Serial Number Lot or Batch Number Manufacturing Date Expiration Date Distinct Identification Code MRI Safety Implantable Status Assigning Authority Unknown Unknown [id number] Unknown 02/18/24 Unknown Unknown Active Unk nown Unknown Unknown na Unknown 04/27/26 Unknown Unknown Active Unkn own Unknown Unknown na Unknown 06/21/26 Unknown Unknown Active Unkno wn Unknown Unknown na Unknown 05/24/26 Unknown Unknown Active Unkno wn Radiology * Contributor_system, MUSE01: VERIFY, PERFORM Event Display: EKG Authored Date: Please click on link to see image. FCM Outpt Note * KEVIN Dalton Katy Marie: PERFORM Event Display: FCM Outpt Note Authored Date: Chief Complaint PVC's every fourth beat. Was found during colonoscopy. States has no issues. History of Present Illness Incidental findings of PVCs every 3-4 beats during colonoscopy He has no history of palpitations, chest pain, dizziness, SOB, headaches He does not smoke or drink alcohol He does drink coffee Review of Systems A total of 10 systems were reviewed. Pertinent positive and negatives addressed in HPI, all other findings are negative. Physical Exam Vitals & Measurements T:36.3C HR:82(Monitored) BP:122/80 SpO2:96% HT:194cm WT:121kg WT:121.000kg(Dosing) BMI:32.15 PHQ2 Data(Data Documented on:05/23/2023 14:52) Emotional health assessment NEGATIVE Constitutional: Alert and oriented, No acute distress, Well-appearing, Normal mood and affect Respiratory: Lung sounds are clear, equal chest rise and fall with breathing, no pursed lip breathing Cardiovascular: Heart sounds irregular rate and rhythm, without gallop or murmur, no edema, irregular radial pulses HEENT: Normocephalic, atraumatic, conjunctiva are clear, sclera non-icteric Skin: Warm, pink, dry, intact Assessment/Plan Body mass index [BMI] 32.0-32.9, adult PVCs (premature ventricular contractions) Problem isAcute Goal:maintenance Data:_ Plan:reviewed labs EKG reviewed with MMs. SA with frequent PVCs Holter Cardio referral Discussed return precautions and ER precautions. Patient verbalizes understanding and agrees with plan Attestation I attest that I have spent 33 minutes in care and coordination of this patient. 5min previsit: chart review and preparation 24 min [id number]: obtaining HPI, PE, discussing Assessement and Plan, and other pertinent discussions/decisionsr/t care 4min postvisit: coordination of care, orders, and documentation/paperwork Problem List/Past Medical History Ongoing Actinic keratoses [...] post total left knee replacement Ulnar neuropathy Historical Encounter for annual general medical examination without abnormal findings in adult Knee pain Low back pain radiating to right lower extremity Procedure/Surgical History Colonoscopy| Service Date: 4CT angiography of chest with contrast| Service Date: 03/21/2021hest X-ray| Service Date: 2Colonoscopy| Service Date: umbar epidural steroid injection| Service Date: 07/03/2019Colonoscopy| Service Date: 10/18/2017Chest X-ray| Service Date: 03/30/2017Right Knee - Multiple Surgery| Service Date: 2012Kn replacement| Service Date: 2010Cholecystectomy| Service Date: 2009Kn, Left Multiple - Total Replacement| Service Date: 01/2008Colonoscopy Medications amoxicillin(amoxicillin 500 mg oral capsule), 2000 mg= 4 cap, PO, As indicated, 2 refills Allergies iodineVomiting, Rash shrimpVomiting, Rash Social History Smoking Status Never smoked cigarettes Alcohol - Low Risk Exercise - Regular exercise Home/Environment - Low Risk Nutrition/Health - Low Risk Sexual - Low Risk Substance Abuse - Low Risk Tobacco - Low Risk Family History Hodgkin's disease: Brother. Hypertension: Father, Sister and Brother. Skin cancer: Mother. Health Status Family Member(s) Recommendations Health Maintenance Pending(in the next year) OverDue Adult Influenza Vaccine due08/17/22and every 1year Due Adult COVID-19 Vaccination due05/23/23Unknown Frequency Adult Social Determinants of Health Screening due05/23/23Unknown Frequency Adult Tdap/Td Vaccine due05/23/23Unknown Frequency Hepatitis C Screening due05/23/23One-time only Shingles Vaccine due05/23/23One-time only Satisfied(in the past 1 year) Satisfied Body Mass Index on05/23/23.Satisfied by CHAZ Bass Angela Lipid Screening on04/01/23.Satisfied by Contributor_system, [employer] Electronic Signature on File CC: Ayah Roberts, DO [address] [address] Electronically Reviewed/Signed by: KEVIN Ga Author Signature Dt/Tm:05/23/2023 03:42 PM Department of Family Medicine [facility] Patient Care team information Care Team Personnel Name: TONY Man, Radha Haq Position: Physician Carbon Cutter - Orthopaedic Surg Member Role: Lifetime Relationship Address: Address: [address] [place] [phone] Name: KEVIN Dalton Katy Marie Position: Nurse Pract - Family Med Member Role: Primary Care Provider Address: Address: [address] [facility] [address] [place] [address] Name: Margaritamarya Amelia Position: HIS Supervisor_P Member Role: HIS Lifetime Care Team Related Persons Name: KAYLI RUBIO V Address: [place] Address: home [address] [facility], [place] [phone] Name: WILLIAM WOODS Address: [place] Address: [address] [place] [phone] Name: ALEX WOODS V Address: [place] Address: [address] [place] [phone] Name: ALEX WOODS V Address: home [address] [place] [phone]"
--- OUTSIDE RECORDS SUMMARY | 2023-11-20 11:31 | External Medical Summary | Continuity of Care Document ---
Author Name Unknown Organization [address] Address [address] [place], [place] [id number] Care Team Providers Care Rnfa Name Role Phone Barbara Dalton Primary Care Physician [phone] [id number] Date(s): 05/31/23 - 05/31/23 [facility] [address], [address] [place] [address] [phone] Discharge Disposition: Home or Self Care Attending Physician: KEVIN Dalton Katy Marie Referring Physician: KEVIN Dalton Katy Marie Allergies, Adverse Reactions, Alerts Substance Reaction Severity Status shrimp Vomiting Rash Active iodine Vomiting Rash Active Medications amoxicillin 500 mg oral capsule Start: 04/15/23 9:26:00 EST, 4 cap, PO, As indicated, Disp# 4 cap, Refills: 2, take one hour beforedental procedures as directed, Pharmacy: [id number] Start Date: 04/15/23 Status: Ordered Problem List Condition Confirmation Course Effective Dates [...] COVID-19 vaccine series not completed Confirmed Active Procedures Procedure Date Related Diagnosis Body Site Status Colonoscopy 1, 2 05/16/23 Complete d ARTHROPLASTY TOTAL SHOULDER 3 01/17/[address] angiography of chest with contrast 4 03/21/21 Completed Chest X-ray 5 03/18/21 Completed Colonoscopy 2020 Completed Lumbar epidural steroid injection 07/03/19 Completed Colonoscopy 6, 7 10/18/17 Complete d Chest X-ray 8 03/30/17 Completed Right Knee - Multiple Surgery 2012 Completed Knee replacement 9 2010 Comple hong Cholecystectomy 2009 Completed Knee, [...] years ago ? 2012 for suspicious polyps Social History Social History Type Response Smoking Status Never smoked cigaret efren Sex Implantable Device List Procedure Provider Procedure Date Device Type Site Unknown Unknown 01/17/22 Unknown Unknown Device Identifier Serial Number Lot or Batch Number Manufacturing Date Expiration Date Distinct Identification Code MRI Safety Implantable Status Assigning Authority Unknown Unknown [id number] Unknown 02/18/24 Unknown Unknown Active Unk nown Unknown Unknown na Unknown 04/27/26 Unknown Unknown Active Unkn own Unknown Unknown na Unknown 06/21/26 Unknown Unknown Active Unkno wn Unknown Unknown na Unknown 05/24/26 Unknown Unknown Active Unkno wn Patient Care team information Care Team Personnel Name: TONY Man, aRdha Haq Position: Physician Movie Extra - Orthopaedic Surg Member Role: Lifetime Relationship Address: Address: [address] [facility] [address] [place] [place] [address] Name: KEVIN Dalton Katy Marie Position: Nurse Pract - Family Med Member Role: Primary Care Provider Address: Address: [address] [facility] [address] [place] [address] Name: Amelia Tafoya Position: HIS Supervisor_P Member Role: HIS Lifetime Care Team Related Persons Name: KAYLI RUBIO V Address: [place] Address: home [address] [facility] [place] [phone] Name: WILLIAM WOODS Address: [place] Address: home [address] [place] [phone] Name: ALEX WOODS V Address: [place] Address: home [address] [phone] Name: ALEX WOODS V Address: home [address] [place] [phone]
--- OUTSIDE RECORDS SUMMARY | 2023-11-20 11:31 | External Medical Summary | Continuity of Care Document ---
Author Name Unknown Organization [address] Address [address] [place], [place] [phone] Care Team Providers Care Glass Handler Name Role Phone ShaBarbara Primary Care Physician [phone] [facility] [id number] Date(s): 09/04/23 - 09/04/23 [facility] [address], [address] [place] [address] [phone] Discharge Disposition: Home or Self Care Attending Physician: KEVIN Coughlin Sarah A Referring Physician: KEVIN Coughlin Sarah A Allergies, Adverse Reactions, Alerts Substance Criticality Severity Reaction Reaction Severity Status shrimp Vomiting Rash Active iodine Vomiting Rash Active Medications amoxicillin 500 mg oral capsule Start: 04/15/23 9:26:00 AM EST, 4 cap, PO, As indicated, Disp# 4 cap, Refills: 2, take one hour before dental procedures as directed, Pharmacy: [facility][id number] Start Date: 04/15/23 Status: Ordered CalMag Thins oral tablet Start: 06/28/23 8:50:00 AM EDT Start Date: 06/28/23 Status: Ordered Men's Multi Gummies Start: 06/28/23 8:51:00 AM EDT Start Date: 06/28/23 Status: Ordered metoprolol succinate 25 mg oral tablet, extended release Start: 06/28/23 9:16:00 AM EDT, 2 tab, PO, qhs, Disp# 90 tab, Pharmacy: [facility][id number] Start Date: 06/28/23 Status: Ordered Problem List Condition Confirmation Course [...] years ago ? 2012 for suspicious polyps Results Radiology Reports * Exam Date Time Procedure Performing Provider Status 09/04/23 3:52 PM Echo Stress, Exercise w/ Contrast [place]; Final Notes: (Echo Stress, Exercise w/ Contrast) Reason For Exam: frequent pvcs Echo Stress, Exercise w/ Contrast Report Signatures Stress ECG Finalized by Dr. Ravi Arevalo MD on 09/05/2023 12:22 PM Echo Finalized by Dr. Ravi Arevalo MD on 09/05/2023 12:22 PM [place] Act 112: Yes - Discussed with patient Summary 1. Negative exercise stress echocardiogram and EKG for ischemia at 97% MPHR. 2. Average exercise tolerance for age and gender, 115% of predicted, achieving 10.1 METs. 3. Heart rate recovery 38 beats at 1 minute. 4. No complaints by patient. 5. Frequent unifocal PVCs with occasional bigeminal and trigeminal patterns at rest and in recovery. The PVC's resolve with higher HR's during exercise. 6. PVC frequency lessened with elevated heart rates. Spoke with Hank BROWN post test, pt instructed to increase metoprolol succinate to 50 mg po q HS. Supervising: Gemini Quiros RN BMI: 31.66 Contrast/Agitated Saline Contrast Agent/Agitated Saline: Definity IV Access: Right Arm Patient Info Name: Enoc WOODS Age: 57 years : 1965 Gender: Male Ht: 193 cm Wt: 118 kg BSA: 2.54 m2 Technical Quality: Fair, Technically difficult study Exam Date: 09/04/2023 3:20 PM Exam Location: [facility] Patient Status: Outpatient Staff Ordering Physician: Sonali Coughlin Coach Operator: Ping Weaver RDCS, RVT Attending Physician: Sonali Coughlin Study Info [facility] [id number] - [id number] - Indications I493 - Ventricular premature depolarization Procedure(s) * An Exercise stress echocardiogram was performed. * Failed 2D images were enhanced successfully with Definity per lab protocol. * Coach Operator, Ping Weaver RDCS, RVT, provided education about ultrasound enhancing agent to the patient. Exam Type: Exercise Stress ECG Summary Negative exercise ECG for ischemia. Protocol: Sebastian Rest HR: 65 bpm Peak HR: 160 bpm Rest Sys BP: 122 mmHg Peak Sys BP: 198 mmHg Max Pred HR: 165 bpm % Max Pred HR: 97 % Target HR: 140 bpm Max RPP: 31,680 bpm*mmHg Wlech Score: 7 Target HR Summary: Test terminated after reaching target heart rate (85% max predicted) BP Response: Patient exhibited a hypertensive response with stress Termination Reason: leg fatigue Cardiac Symptoms: None Max ST Seg Deviation: 0.50 mm Total Time: 9 min : 0 sec Rest Sapp BP: 70 mmHg Peak Sapp BP: 90 mmHg Angina Score: None Total METS: 10.10 Stress ECG Details Resting ECG Normal sinus rhythm, resting ST abnormality. Stress ECG No abnormal ST/T wave changes with exercise. Lead III nondiagnostic with resting T wave inversion. Arrhythmias Frequent unifocal PVCs with occasional bigeminal and trigeminal patterns at rest and in recovery. The PVC's resolve with higher HR's during exercise. Stress Echo Findings Left Ventricle Normal LV wall motion response to exercise. Left ventricle becomes smaller and more vigorous with exercise. Improved global left ventricular function with exercise. Left Ventricle Technically difficult study due to patient body habitus and frequent ventricular ectopy. Successfully enhanced with Definity contrast per lab protocol for better endocardial definition. Mildly dilated left ventricle for BSA. Mild global hypokinesis with no regional wall motion abnormalities noted. Mildly reduced systolic function, ejection fraction calculated by Biplane Raymond's method is 45-50%. Mild concentric left ventricular hypertrophy. Ventricles Name Value Normal LV Dimensions 2D/MM IVS Diastolic Thickness (2D) 1.2 cm 0.6-1.0 LVID Diastole (2D) 5.3 cm 3.6-5.6 LVIW Diastolic Thickness (2D) 1.3 cm 0.6-1.0 LVID Systole (2D) 4.1 cm 2.5-4.0 LV Mass (2D Cubed) 281.30 g 88.00-224.00 LV Mass Index (2D Cubed) 0.01 g/cm2 0.00-0.01 Relative Wall Thickness (2D) 0.51 LV Fractional Shortening/Ejection Fraction 2D/MM LV Fractional Shortening (2D) 22 % 25-43 LV EF (2D Teicholz) 44 % 52-100 LV Diastolic Volume (4C MOD) 221 ml LV Diastolic Volume (2C MOD) 198 ml LV Diastolic Volume (BP MOD) 210 ml 62-150 LV Diastolic Volume Index (BP MOD) 82.50 ml/m2 34.00-74.00 LV Systolic Volume (BP MOD) 114 ml 21-61 LV Systolic Volume Index (BP MOD) 44.69 ml/m2 11.00-31.00 LV EF (BP MOD) 46 % 57-68 LV SV (BP MOD) 96.13 ml Final Signed by:DO Arevalo Jason D Signed (Electronic Signature):09/04/2023 3:20 p Social History Social History Type Response Smoking Status Never smoked cigaret efren Sex Implantable Device List Procedure Provider Procedure Date Device Type Site Unknown Unknown 01/17/22 Unknown Unknown Device Identifier Serial Number Lot or Batch Number Manufacturing Date Expiration Date Distinct Identification Code MRI Safety Implantable Status Assigning Authority Unknown Unknown [id number] Unknown 02/18/24 Unknown Unknown Active Unk nown Unknown Unknown na Unknown 04/27/26 Unknown Unknown Active Unkn own Unknown Unknown na Unknown 06/21/26 Unknown Unknown Active Unkno wn Unknown Unknown na Unknown 05/24/26 Unknown Unknown Active Unkno wn Cardiology * Contributor_system, MUSE01: VERIFY, PERFORM Event Display: Exercise Testing Authored Date: Please click on link to see image. Patient Care team information Care Team Personnel Name: TONY Man, Radha Haq Position: Physician Floral Decorator - Orthopaedic Surg Member Role: Lifetime Relationship Address: Address: [address] [place] [address] [place] [address] Name: KEVIN Dalton Katy Marie Position: Nurse Pract - Family Med Member Role: Primary Care Provider Address: Address: [address] [place] [address] [address] [place] [address] Name: Amelia Tafoya Position: HIS Supervisor_P Member Role: HIS Lifetime Care Team Related Persons Name: KAYLI RUBIO V Address: [place] Address: [address] [place], [place] [phone] Name: WILLIAM WOODS Address: [place] Address: [address] [place] [phone] Name: ALEX WOODS V Address: home [address] [place] [phone] Name: ALEX WOODS V Address: [place] Address: home [address] [facility] [place] [phone]
--- OUTSIDE RECORDS SUMMARY | 2023-11-20 11:31 | External Medical Summary | Continuity of Care Document ---
Author Name Unknown Organization [address] Address [address] [place], [place] [id number] Care Team Providers Care Rubber Mixer Name Role Phone Sha Barbaramichael Hamilton Primary Care Physician [phone] [id number] Date(s): 07/16/23 - 07/16/23 [facility] [address], [address] [place] [address] [phone] Discharge Disposition: Home or Self Care Attending [...] hour before dental procedures as directed, Pharmacy: [id number] Start Date: 04/15/23 Status: Ordered CalMag Thins oral tablet Start: 06/28/23 8:50:00 AM EDT Start Date: 06/28/23 Status: Ordered Men's Multi Gummies Start: 06/28/23 8:51:00 AM EDT Start Date: 06/28/23 Status: Ordered metoprolol succinate 25 mg oral tablet, extended release Start: 06/28/23 9:16:00 AM EDT, 1 tab, PO, qhs, Disp# 90 tab, Pharmacy: [facility][id number] Start Date: 06/28/23 Status: Ordered [...] Exam Date Time Procedure Performing Provider Status 07/16/23 5:23 PM Echo TransTHORacic TTE Complete w/ Con Gretchen Jones; Final Notes: (Echo TransTHORacic TTE Complete w/ Cont) Reason For Exam: frequent pvcs Echo TransTHORacic TTE Complete w/ Cont Report Signatures Finalized by Dr. Ravi Arevalo MD on 07/18/2023 04:20 PM [place] Act 112: Yes - Discussed with patient Summary 1. Mildly dilated left ventricular size. 2. Normal left ventricular systolic function with no regional wall motion abnormalities. 3. Ejection fraction as calculated by Biplane Simpsons method is 60%. 4. Abnormal septal motion from BBB. 5. No left ventricular hypertrophy. 6. Indeterminate left atrial pressure. 7. Mildly dilated right ventricle with normal systolic function. 8. Normal biatrial size. 9. Tricuspid aortic valve with trace to mild insufficiency. 10. Normal estimated pulmonary artery pressures, estimated PASP 23 mmHg. 11. No prior studies for comparison. Patient Info Name: Enoc WOODS Age: 57 years : 1965 Gender: Male Ht: 193 cm Wt: 111 kg BSA: 2.46 m2 HR: 75 bpm BP: 120 / 68 mmHg Heart Rhythm: Frequent PVCs, Sinus Rhythm Technical Quality: Technically difficult study Exam Date: 07/16/2023 4:19 PM Exam Location: [facility] Patient Status: Outpatient Staff Ordering Physician: Sonali Coughlin Lobster Man: Gretchen Rand RDCS, RVT Attending Physician: Sonali Coughlin Study Info CPT J3490 - 34288 - Indications I493 - Ventricular premature depolarization Procedure(s) * A complete two-dimensional, color flow and Doppler transthoracic echocardiogram was performed. * Lobster Man, Gretchen Rand RDCS, RVT, provided education about ultrasound enhancing agent to the patient. * Failed 2D images were enhanced with Definity per lab protocol. Exam Type: Cardiac Basic Left Ventricle Mildly dilated left ventricular size. Normal left ventricular systolic function with no regional wall motion abnormalities. Ejection fraction as calculated by Biplane Simpsons method is 60%. Abnormal septal motion from BBB. No left ventricular hypertrophy. Indeterminate left atrial pressure. Right Ventricle Mildly dilated right ventricle with normal systolic function. TAPSE is normal, 2.1 cm. Left Atrium Normal left atrial size. Right Atrium Normal right atrial size. Atrial Septum Lipomatous hypertrophy of the atrial septum; appears intact by color Doppler. Aortic Valve Tricuspid aortic valve with trace to mild insufficiency. No aortic stenosis. Pulmonic Valve Trace to mild pulmonic insufficiency. Estimated pulmonary arterial mean pressure 9 mmHg. Mitral Valve Normal mitral valve. Trace mitral valve regurgitation. Tricuspid Valve Structurally normal tricuspid valve with trace regurgitation. Normal estimated pulmonary artery pressures, estimated PASP 23 mmHg. Pericardium/Pleural No pericardial effusion. Inferior Vena Cava Unable to visualize the IVC due to acoustic shadowing from overlying bowel gas. Assumed right atrial pressure is 3 mmHg. Aorta Normal aortic root (for BSA) and aortic arch. Left Ventricular Outflow Tract Name Value Normal LVOT 2D LVOT Diameter 2.6 cm LVOT Doppler LVOT Peak Velocity 0.93 m/s LVOT Peak Gradient 3 mmHg LVOT Mean Gradient 2 mmHg LVOT VTI 20.43 cm LVOT Stroke Volume 107.58 ml LVOT Stroke Volume Index 0.04 l/m2 LVOT Cardiac Output 8.07 l/min LVOT Cardiac Index 3.28 L/min/m2 Pulmonic Valve Name Value Normal PV 2D RVOT Diameter (2D) 2.6 cm 1.7-2.7 RVOT Doppler RVOT Peak Velocity 0.52 m/s RVOT Peak Gradient 1 mmHg PV Doppler PV Peak Velocity 0.91 m/s PV Peak Gradient 3 mmHg PV Regurgitation Doppler KS Peak Velocity 1.26 m/s Mitral Valve Name Value Normal MV Doppler MV PHT 60 ms MV Diastolic Function MV E Peak Velocity 0.71 m/s <=0.50 MV A Peak Velocity 0.58 m/s MV E/A 1.24 <=0.80 MV Decel Time 208 ms MV Annular TDI MV Septal s' Velocity 7.94 cm/s MV Septal e' Velocity 7.51 cm/s >=7.00 MV E/e' (Septal) 9.5 <=8.0 MV Lateral s' Velocity 8.92 cm/s MV Lateral e' Velocity 8.05 cm/s >=10.00 MV E/e' (Lateral) 8.86 <=8.00 MV e' Average 7.78 MV E/e' (Average) 9.18 <=14.00 Tricuspid Valve Name Value Normal TV Regurgitation Doppler TR Peak Velocity 2.25 m/s <=2.80 TR Peak Gradient 20 mmHg Estimated PAP/RSVP RA Pressure 3 mmHg <=5 PA Systolic Pressure 23 mmHg <40 PA Mean Pressure (KS Velocity) 9 mmHg TV Diastolic Function TV E Peak Velocity 0.38 m/s TV Decel Time 306 ms >=120 TV Annular TDI TV Lateral Ewa s' Velocity 10.6 cm/s 9.5-18.7 TV Lateral Ewa e' Velocity 10.8 cm/s <7.8 TV E/e' 3.54 2.00-6.00 Aorta Name Value Normal Ascending Aorta Sinus of Valsalva Diameter 3.8 cm 3.1-3.7 Sinus of Valsalva Index 1.54 cm/m2 1.50-1.90 Thoracic Aorta Ao Arch Diameter 3.4 cm Desc Ao Peak Velocity 1.13 m/s Desc Ao Peak Gradient 5 mmHg Aortic Valve Name Value Normal AV Doppler AV Peak Velocity 0.90 m/s <2.00 AV Peak Gradient 3 mmHg AV Area (Cont Eq Nikolay) 5.4 cm2 AV Area Index (Cont Eq Nikolay) 2.19 cm2/m2 AV V1/V2 Ratio 1.02 AV Regurgitation 2D LVOT Area 5.3 cm2 Ventricles Name Value Normal LV Dimensions 2D/MM IVS Diastolic Thickness (2D) 0.9 cm 0.6-1.0 LVID Diastole (2D) 4.7 cm 3.6-5.6 LVIW Diastolic Thickness (2D) 1.0 cm 0.6-1.0 LVID Systole (2D) 3.7 cm 2.5-4.0 LVOT Diameter 2.6 cm LV Mass (2D Cubed) 144.18 g 88.00-224.00 Relative Wall Thickness (2D) 0.42 LV Fractional Shortening/Ejection Fraction 2D/MM LV Fractional Shortening (2D) 22 % 25-43 LV Diastolic Volume (4C MOD) 202 ml LV Diastolic Volume (2C MOD) 193 ml LV Diastolic Volume (BP MOD) 197 ml 62-150 LV Diastolic Volume Index (BP MOD) 80.18 ml/m2 34.00-74.00 LV Systolic Volume (BP MOD) 78 ml 21-61 LV Systolic Volume Index (BP MOD) 31.63 ml/m2 11.00-31.00 LV EF (BP MOD) 61 % 57-68 LV SV (BP MOD) 119.50 ml RV Dimensions 2D/MM RV Basal Diastolic Dimension 4.2 cm 2.5-4.1 TAPSE 2.1 cm >=1.7 Atria Name Value Normal LA Dimensions LA Area (4C) 22.1 cm2 LA Length (4C) 6.2 cm LA Area (2C) 25.9 cm2 LA Length (2C) 6.1 cm LA Volume (4C A-L) 67.49 ml LA Volume (2C A-L) 93.37 ml LA Volume (BP A-L) 80 ml 18-58 LA Volume Index (BP A-L) 32.39 ml/m2 <=34.00 RA Dimensions RA Area (4C) 14.7 cm2 <=18.0 Final Signed by:DO Arevalo Jason D Signed (Electronic Signature):07/16/2023 4:19 p Social History Social History Type Response Smoking Status Never smoked cigaret efren Sex Implantable Device List Procedure Provider Procedure Date Device Type Site Unknown Unknown 01/17/22 Unknown Unknown Device Identifier Serial Number Lot or Batch Number Manufacturing Date Expiration Date Distinct Identification Code MRI Safety Implantable Status Assigning Authority Unknown Unknown [id number] Unknown 02/18/24 Unknown Unknown Active Unk nown Unknown Unknown na Unknown 04/27/26 Unknown Unknown Active Unkn own Unknown Unknown na Unknown 06/21/26 Unknown Unknown Active Unkno wn Unknown Unknown na Unknown 05/24/26 Unknown Unknown Active Unkno wn Patient Care team information Care Team Personnel Name: TONY Man, Radha Haq Position: Physician Cnc Grinder - Orthopaedic Surg Member Role: Lifetime Relationship Address: Address: [address] [place], [place] [address] [address] Name: KEVIN Dalton Katy Marie Position: Nurse Pract - Family Med Member Role: Primary Care Provider Address: Address: [address] [facility] [address] [facility] [place] [address] Name: Amelia Tafoya Position: HIS Supervisor_P Member Role: HIS Lifetime Care Team Related Persons Name: KAYLI RUBIO V Address: [place] Address: home [address] [facility] [place] [phone] Name: WILLIAM WOODS Address: [place] Address: home [address] [place] [id number] Name: ALEX WOODS V Address: home [address] [place] [id number] Name: ALEX WOODS V Address: [place] Address: home [address] [place] [id number]
--- OUTSIDE RECORDS SUMMARY | 2023-11-20 11:31 | External Medical Summary | Continuity of Care Document ---
Author Name Unknown Organization [address] Address [address] [place], [place] [id number] Care Team Providers Care Autistic Teacher Name Role Phone Barbara Dalton Primary Care Physician [phone] En[facility] [id number] Date(s): 06/11/23 - 06/11/23 [facility] [address], [address] [place] [address] [phone] Discharge Disposition: Home or Self Care Attending Physician: DO Arevalo Jason D Referring Physician: DO Arevalo Jason D Allergies, Adverse Reactions, Alerts Substance Reaction Severity Status shrimp Vomiting Rash Active iodine Vomiting Rash Active Medications amoxicillin 500 mg oral capsule Start: 04/15/23 9:26:00 EST, 4 cap, PO, As indicated, Disp# 4 cap, Refills: 2, take one hour beforedental procedures as directed, Pharmacy: [facility][id number] Start Date: 04/15/23 Status: Ordered [...] Safety Implantable Status Assigning Authority Unknown Unknown [id number] Unknown 02/18/24 Unknown Unknown Active Unk nown Unknown Unknown na Unknown 04/27/26 Unknown Unknown Active Unkn own Unknown Unknown na Unknown 06/21/26 Unknown Unknown Active Unkno wn Unknown Unknown na Unknown 05/24/26 Unknown Unknown Active Unkno wn Patient Care team information Care Team Personnel Name: TONY Man, Radha Haq Position: Physician Glass Lined Tank Repairer - Orthopaedic Surg Member Role: Lifetime Relationship Address: Address: [address] [facility] [address] [place] [address] Name: KEVIN Dalton Katy Marie Position: Nurse Pract - Family Med Member Role: Primary Care Provider Address: Address: [address] [facility] [address] [place] [address] Name: Amelia Tafoya Position: HIS Supervisor_P Member Role: HIS Lifetime Care Team Related Persons Name: KAYLI RUBIO V Address: [place] Address: home [address] [facility] [place] [phone] Name: WILLIAM WOODS Address: [place] Address: home [address] [place] [id number] Name: ALEX WOODS V Address: [place] Address: home [address] [place] [id number] Name: ALEX WOODS V Address: home [address] [place] [id number]
--- OUTSIDE RECORDS SUMMARY | 2023-11-20 11:31 | External Medical Summary | Continuity of Care Document ---
Author Name Unknown Organization [facility] [address] [facility] Address [address] [place], [place] [phone] Care Team Providers Care Scuba Dive Training Instructor Name Role Phone Barbara Dalton Primary Care Physician [phone] [id number] Date(s): 06/28/23 - 06/28/23 [facility] [address], [address] [place] [address] [phone] Encounter Diagnosis Frequent PVCs(Discharge Diagnosis) - 06/28/23 Snoring(Discharge Diagnosis) - 06/28/23 Ventricular premature depolarization(Final) - Discharge Disposition: Home or Self Care Attending Physician: KEVIN Coughlin Sarah A Referring Physician: KEVIN Dalton Katy Marie Allergies, Adverse Reactions, Alerts Substance Reaction Severity Status shrimp Vomiting Rash Active iodine Vomiting Rash Active Assessment and Plan Extracted from: Title:Cardiology Office Visit Note Author:KEVIN Pitt rd, Sarah A Date:06/28/23 Impression: 1. FrequentPVCsand a singledominant morphologycomprising 22% of total beats Mr. Rodrick Millan study was reviewed with him. We discussed what PVCs are. Heis asymptomatic. At this point we need to determine if he has anyunderlying obstructive CAD contributingand so he will have a stress test. He will also have a resting echo toassess hiscardiac structure and make sure he does not have a cardiomyopathy. Does sound like he possibly has sleep apnea. We discussed that if he has untreated sleep apnea that can also contributeto ectopysuch as PVCs. He is agreeable to home sleep study. I reviewed his labs from March and he had normal kidney function and electrolytes. I would like him to get a magnesium level, TSH, and T4 today. If no underlying contributor to his PVCs is foundand he continues to be asymptomatic, thenaside from starting metoprolol 25 mg which we will do today,this is just something to watch. To that end he should have yearly echocardiograms in particular toassess his LV function. He will return to the clinic in 6 weeks Medications amoxicillin 500 mg oral capsule Start: 04/15/23 9:26:00 EST, 4 cap, PO, As indicated, Disp# 4 cap, Refills: 2, take one hour beforedental procedures as directed, Pharmacy: [id number] Start Date: 04/15/23 Status: Ordered CalMag Thins oral tablet Start: 06/28/23 8:50:00 EDT Start Date: 06/28/23 Status: Ordered Men's Multi Gummies Start: 06/28/23 8:51:00 EDT Start Date: 06/28/23 Status: Ordered metoprolol succinate 25 mg oral tablet, extended release Start: 06/28/23 9:16:00 EDT, 1 tab, PO, qhs, Disp# 90 tab, Pharmacy: [id number] Start Date: 06/28/23 Status: Ordered Mental Status 06/28/23 Barriers to Learning one year None evide nt Mandatory Health Literacy Documentation Yes Health Literacy Communication Barriers N ever Primary Language Afghan Problem List Condition Confirmation Course Effective Dates [...] inical Service Informant Frequent PVCs Discharge Diagnosis 06/28/23 Non-Specified Snoring Discharge Diagnosis 06/28/23 Non-Specified Procedures Procedure Date Related Diagnosis Body [...] ago ? 2012 for suspicious polyps Results Laboratory List Name Date Magnesium Level (MAGNESIUM) 06/28/23 T4, Free (T4, FREE) 06/28/23 Thyroid Stimulating Hormone (TSH) 4 Most recent to oldest [Reference Range]: 1 Mg [1.6-2.3 mg/dL] 2.1 mg/dL 1 (06/28/23 9:37 AM) Free T4 [0.70-1.48 ng/dL] 0.90 ng/dL 2 (06/28/23 9:37 AM) TSH [0.47-4.68 uIU/mL] 1.41 uIU/mL 3 (06/28/23 9:37 AM) 1Result Comment: Testing Performed By: Dept of Pathology [facility] [address], [address], [place] [address] 2Result Comment: Testing Performed By: Dept of Pathology [facility] [address], [address], [place] [address] 3Result Comment: Testing Performed By: Dept of Pathology [facility] [address], [address], [place] [address] Vital Signs Most recent to oldest [Reference Range]: 1 Patient Weight 118 kg (06/28/23 8:56 AM) Heart Rate 60 bpm (06/28/23 8:56 AM) Respiratory Rate 18 br/min (06/28/23 8:56 AM) Blood Pressure 132/84mmHg (06/28/23 8:56 AM) BP Location # 1 Left Arm (06/28/23 8:56 AM) Social History Social History Type Response Smoking Status Never smoked cigaret efren Sex Implantable Device List Procedure Provider Procedure Date Device Type Site Unknown Unknown 01/17/22 Unknown Unknown Device Identifier Serial Number Lot or Batch Number Manufacturing Date Expiration Date Distinct Identification Code MRI Safety Implantable Status Assigning Authority Unknown Unknown [id number] Unknown 02/18/24 Unknown Unknown Active Unk nown Unknown Unknown na Unknown 04/27/26 Unknown Unknown Active Unkn own Unknown Unknown na Unknown 06/21/26 Unknown Unknown Active Unkno wn Unknown Unknown na Unknown 05/24/26 Unknown Unknown Active Unkno wn Cardiology Outpatient Note * KEVIN Coughlin Sarah A: PERFORM Event Display: Cardiology Outpt Note Authored Date: [id number] Primary Care Provider KEVIN Dalton Katy Marie Referring Provider KEVIN Dalton Katy Marie Chief Complaint - denies chest pain/ tightness, palpitations, flutters or heart racing, or SOB denies dizziness or lightheadedness, no edema ,no change activity level History of Present Illness Mr. Woods presents for evaluation of frequent PVCs. The PVCs was initially found on telemetry while getting a colonoscopy. He subsequently had a Holterstudy demonstrating frequent PVCs. He really has no symptoms. He denies any shortness of breath or chest discomfort. 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 His biggest complaint is that hefatigues easily. He does notehe snores at night and does not sleep well.. No edema. 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 Pmhx: shoulder and two knee replacements Family: father has a valve issue, two daughters who are 27 and 21 - older daughter has some kind ofectopy, siblings are healthy Review of Systems All other systems reviewed and negative except as discussed in the HPI Physical Exam Vitals & Measurements HR:60(Monitored) RR:18 BP:132/84 SpO2:98% WT:118.000kg(Dosing) WT:118kg Physical Examination General: Alert and oriented, No acute distress. Respiratory: Lungs are clear to auscultation, Respirations are non-labored. Cardiovascular:Irregular rhythm, No murmur, No edema, no carotid bruits to auscultation bilaterally. Integumentary: Warm, Dry, Christine Neurologic: Alert, Oriented. Cognition and Speech: Speech clear and coherent. Psychiatric: Cooperative, Appropriate mood & affect. Assessment/Plan Impression: 1. FrequentPVCsand a singledominant morphologycomprising 22% of total beats Mr. Rodrick Millan study was reviewed with him. We discussed what PVCs are. Heis asymptomatic. At this point we need to determine if he has anyunderlying obstructive CAD contributingand so he will have a stress test. He will also have a resting echo toassess hiscardiac structure and make sure he does not have a cardiomyopathy. Does sound like he possibly has sleep apnea. We discussed that if he has untreated sleep apnea that can also contributeto ectopysuch as PVCs. He is agreeable to home sleep study. I reviewed his labs from March and he had normal kidney function and electrolytes. I would like him to get a magnesium level, TSH, and T4 today. If no underlying contributor to his PVCs is foundand he continues to be asymptomatic, thenasidefrom starting metoprolol 25 mg which we will do today,this is just something to watch. To that end he should have yearly echocardiograms in particular toassess his LV function. He will return to the clinic in 6 weeks Problem List/Past Medical History Ongoing Actinic keratoses [...] lower extremity Procedure/Surgical History Colonoscopy| Service Date: 05/16/2023T angiography of chest with contrast| Service Date: [...] 4 cap, PO, As indicated, 2 refills multivitamin with minerals(CalMag Thins oral tablet) [...] Electronic Signature on File CC: KEVIN [address] [facility] [address] [facility] [address] Electronically Reviewed/Signed by: KEVIN Kovacs Author Signature Dt/Tm:06/28/2023 09:38 AM [facility] [place] [facility] Patient Care team information Care Team Personnel Name: TONY Man Tammy M Position: Physician Overnight Caregiver - Orthopaedic Surg Member Role: Lifetime Relationship Address: Address: [address] [place], [place] [address] [address] Name: KEVIN Dalton Katy Marie Position: Nurse Pract - Family Med Member Role: Primary Care Provider Address: Address: [address] [facility] [address] [place] [address] Name: Margaritamarya Amelia Position: HIS Supervisor_P Member Role: HIS Lifetime Care Team Related Persons Name: KAYLI RUBIO V Address: [place] Address: home [address] [facility] [place] [phone] Name: WILLIAM WOODS Address: [place] Address: home [address] [place] [phone] Name: ALEX WOODS V Address: home [address] [place] [id number] Name: ALEX WOODS V Address: [place] Address: [address] [place] [id number]"
[2023-11-20 11:52] VITALS: O2SAT 92
--- NOTE | 2023-11-20 15:03 | Electrocardiogram Report ---
Test Reason : Blood Pressure : */* mmHG Vent. Rate : 94 BPM Atrial Rate : 69 BPM P-R Int : 140 ms QRS Dur : 100 ms QT Int : 368 ms P-R-T Axes : 24 -29 4 degrees QTcB Int : 460 ms Sinus rhythm with marked sinus arrhythmia with frequent Premature ventricular complexes Poor R wave progression, consider anterior [place] vs. lead placement vs. LVH Abnormal ECG When compared with ECG of 21-Mar-2021 11:59, Premature ventricular complexes are now Present Confirmed by Hany Pierre ([id number]) on 11/20/2023 3:03:16 PM Referred By: REFERRED SELF Confirmed By: Hany Pierre
--- NOTE | 2023-11-20 15:08 | Electrocardiogram Report ---
Test Reason : Blood Pressure : */* mmHG Vent. Rate : 92 BPM Atrial Rate : 92 BPM P-R Int : 156 ms QRS Dur : 102 ms QT Int : 384 ms P-R-T Axes : 35 -33 3 degrees QTcB Int : 474 ms Sinus rhythm with frequent Premature ventricular complexes Left axis deviation Poor R wave progression, consider anterior [place] vs. lead placement vs. LVH Abnormal ECG When compared with ECG of 19-Nov-2023 17:33, (unconfirmed) No significant change was found Confirmed by Hany Pierre ([id number]) on 11/20/2023 3:08:44 PM Referred By: REFERRED SELF Confirmed By: Hany Pierre
--- NOTE | 2023-11-20 15:13 | Electrocardiogram Report ---
Test Reason : Blood Pressure : */* mmHG Vent. Rate : 80 BPM Atrial Rate : 80 BPM P-R Int : 142 ms QRS Dur : 104 ms QT Int : 400 ms P-R-T Axes : 33 -32 3 degrees QTcB Int : 461 ms Sinus rhythm with frequent Premature ventricular complexes in a pattern of bigeminy Left axis deviation Poor R wave progression, consider anterior [place] vs. lead placement vs. LVH Abnormal ECG When compared with ECG of 19-Nov-2023 17:56, (unconfirmed) No significant change was found Confirmed by Hany Pierre ([id number]) on 11/20/2023 3:12:51 PM Referred By: REFERRED SELF Confirmed By: Hany Pierre
[2023-11-20 16:45] VITALS: PULSE 75; TEMP 98.2
[2023-11-20 17:05] VITALS: BP 134/81
--- NOTE | 2023-11-20 17:41 | Discharge Summary ---
Discharge Summary Date of Service November 20, 2023 Principal Dx & Hospital Course #1 = Principal Diagnosis (1) Chest pain: Chest pain at rest that developed around 1630 on 11/18 after an argument with his . Since resolved Troponin WNL x 3, EKG no acute changes but shows NSR with frequent PVCs has a history of frequent PVCs as outpatient cardiology visit Chest CTA revealed no acute evidence of pulmonary embolism; no mention of aortic dissection; does note cardiomegaly with biatrial enlargement TSH normal, electrolytes are replete Patient did have a stress echo performed 08/2023 at [place] -negative exercise stress echo and EKG for ischemia Echocardiogram does not show any reduction in ejection fraction Continue metoprolol succinate 50mg p.o. HS Bedtime discussion of multiple visits at the bedside include the patient and his . Patient was eventually visited by Dr. Pierre EP physician locally and recommends referral to [facility] Dr. Qureshi for EP consideration There were no medication changes or work restrictions given to the patient Notes For Next Care Provider Patient remains metoprolol would benefit from consideration of referral to electrophysiology Admission HPI Per Admitting Provider Marco is a 57-year-old male with PMH of PVCs. He presented on 11/18 for constant left-sided chest pain that began around 1630. No prior episodes of similar chest pain. The chest pain radiates to his left shoulder. He characterizes it as "stabbing pain" that comes in spikes that goes straight through to his left upper back. He also endorses a "throbbing pain" that goes down his left shoulder into his left arm. His left arm is reportedly numb. He rates the pain 7/10 at present, and 9/10 at worst. Patient took aspirin 81 mg prior to coming to the hospital; he does not take this on a regular basis. He also took 2 Tylenol this morning for joint pain. No prior history of DE. He is only regular medication is metoprolol succinate 50 mg extended release, which he took last night. He has been taking this since early July. Patient follows with [facility]; Barbara Dalton (PCP) and Sonali Coughlin (Cardiology). He does have a history of PVCs, which she reports he cannot feel. However he developed chest palpitations and pounding chest pain around 1630 today. No PMH of DM, stroke, HTN, PVD, DVT/PE, or GERD to his knowledge. He denies smoking, tobacco use, or alcohol use. No recent bruises, injuries to the chest wall, rashes, or tick bites. No sick contacts. He did have a stress echo done in July at [facility] cardiology. Patient is mildly hypertensive at 161/95 at time of admission; vitals otherwise stable. ED Course: Aspirin 324 mg p.o. Morphine 4 mg IV Nitroglycerin 0.4 mg SL Magnesium sulfate 1 g IV Zofran 4 mg IV Diphenhydramine 50 mg IV Solu-Medrol 40 mg IV ROS: Patient endorses constant left-sided chest pain, sweating, headache, chest palpitations / pounding in chest, chest tightness, and numbness or tingling going down his left arm. Patient denies fever, chills, dizziness, lightheadedness, pleuritic CP, SOB, cough, abdominal pain, N/V/D, changes in urinary/bowel habits, or numbness tingling in his right arm or legs. Discharge Exam Awake alert appropriate no cardiac murmurs lungs are clear patient ambulated in the hallway without difficulty Discharge Plan Discharge Items Patient Disposition: Home - Self-Care Reason For Visit: CHEST PAIN Discharge Diagnosis: chest pain premature ventricular contractions Activity: Resume your previous activity Non-emergency contact: Primary Care Provider and Ice Skating Teacher Call non-emergency contact if: your symptoms worsen Follow-up/Referrals: Barbara Dalton CRNP [Primary Care Provider] - Diet: Regular Addtl Attending Provider Instructions: Dr. 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 Provider Instructions: continue to take your metoprolol and discuss case with referral to Dr Qureshi, consider reducing caffeine Pending Studies at Discharge: No Stand-Alone Forms: My [facility], Smoking Cessation Medications and DC Order Prescriptions: Continued acetaminophen [Tylenol Extra Strength] 500 mg Tablet 1,000 mg PO Q6H PRN (Reason: Pain) ibuprofen [Advil] 200 mg Tablet 400 - 600 mg PO Q6H PRN (Reason: Pain) zinc 50 mg Tablet 50 mg PO DAILY metoprolol succinate [Toprol XL] 50 mg Tablet Extended Release 24 Hr 50 mg PO HS Discharge Orders: Discharge Order (Routine); Ordered 11/20/23 Ordered By: Keith Sheridan Admission Data Admit Date/Time: 11/19/23 20:35 Attending Provider: Keith Sheridan Admit Provider: Jhoana Junior Primary Care Provider: Barbara Dalton Other Providers: Jhoana Junior; Cori Vivar Other Interventions: Discharge Summary Assessment (RN) Last Done: 11/20/23 17:04 Hospital Stay Data Consultations 11/19/23 19:20 ED Decision to Admit Stat Diagnostic Imagining Performed 11/19/23 18:27 CT angio chest PE protocol Stat Pending Results Patient Have Any Pending Studies at Discharge: No Discharge Instructions Given to Patient (Per Discharging Provider) Dr. Natty Qureshi MD Ice Skating Teacher in [address] [place] [address] Total Time Total Time Spent Total Time Spent (In Minutes): It required greater than 30 minutes to prepare this patient for discharge. Coding Level of Care Code 62095 INP/OBS DISCH >30 MIN Diagnoses Chest pain R07.9 Chest pain type: unspecified
--- NOTE | 2023-11-20 18:09 | XCELERA ---
[id number]
== END 2023-11-20 17:18 | disposition home or self-care (01) ==
LOC: 2W 17:29 → ED 17:29 → SUATTDRO 20:35 → 2W 22:24